=== PATIENT | female | born 1945 | race Caucasian/White ===

== ENCOUNTER → 2019-05-01 12:54 | Outpatient (CLI) | payer OTHER, MEDICARE, SELFPAY ==
[2019-05-01 13:46] LABS: Add Manual Diff / Slide Review NO; Basophils Absolute Auto 100 /uL (0-100); Basophils Percent Auto 0.9 % (0-2); Eosinophils Absolute Auto 300 /uL (0-450); Eosinophils Percent Auto 4.4 % (2-4); Hematocrit 41.7 % (36-46); Hemoglobin 14.4 g/dL (12.0-16.0); Lymphocytes Absolute Auto 1400 /uL (1100-4500); Lymphocytes Percent Auto 23.1 % (25-40); Mean Corpuscular HGB Conc 34.6 % (30-36); Mean Corpuscular Hemoglobin 31.7 PG (26-34); Mean Corpuscular Volume 91.6 fL (80-100); Monocytes Absolute Auto 400 /uL (0-900); Monocytes Percent Auto 7.1 % (3-14); Neutrophils Absolute Auto 4000 /uL (1500-7000); Neutrophils Percent Auto 64.5 % (50-75); Platelet Count 269 X10^3/uL (150-400); Red Blood Cell Count 4.55 X10^6/uL (4.0-5.2); Red Cell Distribution Width 13.4 % (11.6-14.8); White Blood Cell Count 6.3 X10^3/uL (4.5-11.0)
[2019-05-01 13:47] LABS: Alanine Aminotransferase 35 IU/L (<35); Albumin 4.7 g/dL (3.5-5.0); Albumin Globulin Ratio 1.5 (1.0-2.8); Alkaline Phosphatase 75 U/L (38-126); Aspartate Aminotransferase 37 IU/L (14-36); BUN Creatinine Ratio 18.3 (6-22); Blood Urea Nitrogen 11 mg/dL (7-17); Calcium 9.5 mg/dL (8.4-10.2); Carbon Dioxide 26 mmol/L (22-32); Chloride 93 mmol/L (98-107); Cholesterol 227 mg/dL (140-199); Estimated Glomerular Filt Rate > 60.0 mL/min (>60); Globulin 3.2 g/dL (1.7-4.1); Glucose 116 mg/dL (80-110); HDL Cholesterol 40 mg/dL (40-60); HEMOLYSIS < 15 (0-50); LDL Cholesterol Calculated 138 mg/dL (<100); Potassium 4.2 mmol/L (3.4-5.1); Sodium 132 mmol/L (137-145); Total Protein 7.9 g/dL (6.3-8.2); Triglycerides 243 mg/dL (35-150)
[2019-05-01 13:57] LABS: Hemoglobin A1C% w Est Avg Glu 5.9 % (4.0-6.0)
[2019-05-01 14:13] LABS: Vitamin D 25 Hydroxy (D3) 36.4 ng/mL (30.0-100.0)
[2019-05-01 14:26] LABS: TSH w/ Reflex to FT4 2.33 uIU/mL (0.47-4.68)
== END ==
PROVIDERS: Family Provider Physician Assistant; Visit Provider Physician Assistant
DX: R73.03 Prediabetes (principal); E55.9 Vitamin D deficiency, unspecified; I10 Essential (primary) hypertension; E03.9 Hypothyroidism, unspecified; E78.5 Hyperlipidemia, unspecified
CPT/HCPCS: 36415; 80053; 80061; 82306; 83036; 84443; 85025

== ENCOUNTER → 2020-07-11 14:59 | Outpatient (CLI) | payer MEDICARE, OTHER, SELFPAY ==
[2020-07-11 17:04] LABS: Add Manual Diff / Slide Review NO; Basophils Absolute Auto 0 /uL (0-100); Basophils Percent Auto 0.6 % (0-2); Eosinophils Absolute Auto 200 /uL (0-450); Hematocrit 38.1 % (36-46); Hemoglobin 13.2 g/dL (12.0-16.0); Lymphocytes Absolute Auto 1400 /uL (1100-4500); Lymphocytes Percent Auto 17.9 % (25-40); Mean Corpuscular HGB Conc 34.8 % (30-36); Mean Corpuscular Hemoglobin 31.9 PG (26-34); Mean Corpuscular Volume 91.7 fL (80-100); Monocytes Absolute Auto 600 /uL (0-900); Monocytes Percent Auto 8.2 % (3-14); Neutrophils Absolute Auto 5500 /uL (1500-7000); Neutrophils Percent Auto 70.3 % (50-75); Platelet Count 257 X10^3/uL (150-400); Red Blood Cell Count 4.15 X10^6/uL (4.0-5.2); Red Cell Distribution Width 12.9 % (11.6-14.8); White Blood Cell Count 7.8 X10^3/uL (4.5-11.0)
[2020-07-11 17:21] LABS: Alanine Aminotransferase 36 IU/L (<35); Albumin 4.5 g/dL (3.5-5.0); Albumin Globulin Ratio 1.4 (1.0-2.8); Alkaline Phosphatase 64 U/L (38-126); Aspartate Aminotransferase 39 IU/L (14-36); Bilirubin Total 1.6 mg/dL (0.2-1.3); Blood Urea Nitrogen 9 mg/dL (7-17); Calcium 9.6 mg/dL (8.4-10.2); Carbon Dioxide 30 mmol/L (22-32); Chloride 95 mmol/L (98-107); Cholesterol 191 mg/dL (140-199); Estimated Glomerular Filt Rate > 60.0 mL/min (>60); Globulin 3.2 g/dL (1.7-4.1); Glucose 97 mg/dL (80-110); HDL Cholesterol 42 mg/dL (40-60); HEMOLYSIS < 15 (0-50); LDL Cholesterol Calculated 103 mg/dL (<100); Potassium 4.6 mmol/L (3.4-5.1); Sodium 130 mmol/L (137-145); Total Protein 7.7 g/dL (6.3-8.2); Triglycerides 230 mg/dL (35-150)
[2020-07-11 17:50] LABS: TSH w/ Reflex to FT4 1.49 uIU/mL (0.47-4.68)
== END ==
PROVIDERS: Family Provider Physician Assistant; PCP Physician Assistant; Referring Provider Physician Assistant; Visit Provider Physician Assistant
DX: E78.5 Hyperlipidemia, unspecified (principal); I10 Essential (primary) hypertension; E03.9 Hypothyroidism, unspecified
CPT/HCPCS: 36415; 80053; 80061; 84443; 85025

== ENCOUNTER → 2020-07-27 19:35 | Outpatient (ROUT) | payer MEDICARE, OTHER, SELFPAY ==
[2020-07-27 20:09] LABS: Hemoglobin A1C% w Est Avg Glu 6.1 % (4.0-6.0)
[2020-07-27 20:10] LABS: Rheumatoid Factor < 8.6 IU/mL (<12.0)
[2020-07-27 20:16] LABS: C-Reactive Protein Quant < 0.5 mg/dL (<1.0)
[2020-07-27 20:32] LABS: Erythrocyte Sedimentation Rate 10 MM/HR (0-20)
[2020-07-30 14:24] LABS: ANA Screen, IFA Negative (.)
== END ==
PROVIDERS: Family Provider Physician Assistant; PCP Physician Assistant; Visit Provider Physician Assistant
DX: R73.03 Prediabetes (principal); M25.541 Pain in joints of right hand; M25.542 Pain in joints of left hand
CPT/HCPCS: 83036; 85651; 86038; 86140; 86430

== ENCOUNTER → 2020-09-27 08:51 | Outpatient (CLI) | payer MEDICARE, OTHER, SELFPAY ==
--- NOTE | 2020-09-27 08:55 | DI.ECHO.S_ITS ---
[place] [facility]---------+ [facility] +---------+ : : [address] : : : : [id number] : : : : Phone: [phone]+ Echocardiogram Report + + :Name: CLINTON BUENO Study Date: 09/27/2020 Height: 66 in : :[facility] ReadingLocation: Weight: 190 lb : : Gender: Female BSA: 2.0 m2 : :: 1945 Age: 75 yrs BP: 180/95 mmHg: :Reason For Study: HYPERTENSION : :Ordering Physician: BALBIR, : :GIANCARLO Performed By: Princess Clark : :Referring: GIANCARLO MCGREGOR : + + Interpretation Summary 1) Normal left ventricular thickness, size, wall motion, and systolic function (EF 60-65%). 2) Normal right ventricular size and function. 3) Diastolic parameters suggest a pseudonormalization pattern, consistent with probable elevated filling pressures. 4) No significant valvular abnormalities. 5) Hypertension present during the study (BP 180/95mmHg). 6) No prior Echo available for comparison. Procedure: A two-dimensional transthoracic echocardiogram with color flow and Doppler was performed. The study quality was technically adequate. There is no prior echocardiogram noted for this patient. The patient was in sinus bradycardia with heart rates between 56-67 bpm during the exam. Left Ventricle: The left ventricle is normal in size. Left ventricular wall thickness is at the upper limits of normal. The ejection fraction is estimated to be 60-65%. Diastolic parameters suggest a pseudonormalization pattern, consistent with probable elevated filling pressures. Right Ventricle: The right ventricle is normal in size and function. Atria: The left atrium is severely dilated. Right atrial size is normal. There is no Doppler evidence for an interatrial shunt. Mitral Valve: The mitral valve is normal in structure and function. There is mild mitral regurgitation. Aortic Valve: The aortic valve is trileaflet. The aortic valve opens well. There is no aortic valve stenosis. No aortic regurgitation is present. Tricuspid Valve: The tricuspid valve is normal in structure and function. There is mild tricuspid regurgitation. Pulmonary artery pressures cannot be estimated because of the lack of a measurable TR jet velocity but the IVC suggests a CVP of around 3 mmHg. Pulmonic Valve: The pulmonic valve is not well seen, but is grossly normal. There is no pulmonic valvular regurgitation. Great Vessels: The aortic root is normal size. The dimensions of the ascending aorta are normal. The IVC is of normal diameter and collapses greater than 50% with a sniff. This suggests a low right atrial pressure of 3 mm Hg. Pericardium/ Pleura There is no pericardial effusion. There is no pleural effusion. MMode/2D Measurements & Calculations LVIDd: 5.1 cm LVOT diam: 2.0 cm LVIDs: 3.2 cm Ao root diam: 2.6 cm FS: 37.5 % asc Aorta Diam: 2.8 cm IVSd: 0.89 cm Ao Arch Diam (Prox Trans): 2.5 cm LVPWd: 1.1 cm LV garnica. diameter/BSA (cm/m^2): 2.6 LV sys. diameter/BSA (cm/m^2): 1.6 LA A2 area: 27.1 cm2 RA long axis: 4.1 cm LA A4 area: 25.6 cm2 RA area: 15.6 cm2 LA length (vol): 5.9 cm RA vol: 50.9 ml LA vol: 100.5 ml RA : 26.0 ml/m2 LA vol index: 51.4 ml/m2 IVC diam: 1.1 cm RVD1 (basal): 3.1 cm TAPSE: 1.9 cm Doppler Measurements & Calculations Ao V2 max: 164.7 cm/sec LVOT Max Derek: 112.0 cm/sec Ao V2 mean: 124.0 cm/sec LV V1 max P.0 mmHg Ao max P.8 mmHg LV V1 VTI: 25.3 cm Ao mean P.8 mmHg JORDAN(I,D): 1.9 cm2 Ao V2 VTI: 40.1 cm JORDAN(V,D): 2.0 cm2 sev ratio: 0.63 JORDAN indexed to BSA (cm^2/m^2): 0.97 MV E max derek: 96.7 cm/sec PA V2 max: 86.4 cm/sec Med Peak E' Derek: 8.3 cm/sec PA V2 mean: 62.0 cm/sec E/E' med: 11.7 PA mean P.7 mmHg Lat Peak E' Derek: 5.6 cm/sec PA pr(Accel): 32.8 mmHg E/E' lat: 17.4 E/e' average: 14.5 MV dec time: 0.21 sec SV(LVOT): 76.2 ml Reading Physician:11:28 AM
== END ==
PROVIDERS: Family Provider Physician Assistant; PCP Physician Assistant; Referring Provider Physician Assistant; Visit Provider Physician Assistant
DX: I10 Essential (primary) hypertension (principal); R01.1 Cardiac murmur, unspecified
CPT/HCPCS: 93306

== ENCOUNTER → 2020-11-28 13:09 | Outpatient (CLI) | payer MEDICARE, OTHER, SELFPAY ==
[2020-11-28 14:27] LABS: Add Manual Diff / Slide Review NO; Basophils Absolute Auto 100 /uL (0-100); Basophils Percent Auto 0.8 % (0-2); Eosinophils Absolute Auto 200 /uL (0-450); Eosinophils Percent Auto 3.3 % (2-4); Hematocrit 40.2 % (36-46); Hemoglobin 13.6 g/dL (12.0-16.0); Lymphocytes Absolute Auto 1300 /uL (1100-4500); Lymphocytes Percent Auto 20.1 % (25-40); Mean Corpuscular HGB Conc 33.8 % (30-36); Mean Corpuscular Hemoglobin 31.5 PG (26-34); Mean Corpuscular Volume 93.3 fL (80-100); Monocytes Absolute Auto 700 /uL (0-900); Monocytes Percent Auto 10.3 % (3-14); Neutrophils Absolute Auto 4300 /uL (1500-7000); Neutrophils Percent Auto 65.5 % (50-75); Platelet Count 224 X10^3/uL (150-400); Red Blood Cell Count 4.31 X10^6/uL (4.0-5.2); Red Cell Distribution Width 13.8 % (11.6-14.8); White Blood Cell Count 6.6 X10^3/uL (4.5-11.0)
[2020-11-28 14:42] LABS: Hemoglobin A1C% w Est Avg Glu 5.9 % (4.0-6.0)
[2020-11-28 15:04] LABS: Alanine Aminotransferase 24 IU/L (<35); Albumin 4.3 g/dL (3.5-5.0); Albumin Globulin Ratio 1.3 (1.0-2.8); Alkaline Phosphatase 72 U/L (38-126); Aspartate Aminotransferase 32 IU/L (14-36); BUN Creatinine Ratio 17.3 (6-22); Bilirubin Total 1.8 mg/dL (0.2-1.3); Blood Urea Nitrogen 9 mg/dL (7-17); Calcium 9.6 mg/dL (8.4-10.2); Carbon Dioxide 27 mmol/L (22-32); Chloride 99 mmol/L (98-107); Cholesterol 201 mg/dL (140-199); Estimated Glomerular Filt Rate > 60.0 mL/min (>60); Globulin 3.4 g/dL (1.7-4.1); Glucose 107 mg/dL (80-110); HDL Cholesterol 41 mg/dL (40-60); HEMOLYSIS < 15 (0-50); LDL Cholesterol Calculated 120 mg/dL (<100); Potassium 4.4 mmol/L (3.4-5.1); Sodium 135 mmol/L (137-145); Total Protein 7.7 g/dL (6.3-8.2); Triglycerides 198 mg/dL (35-150)
[2020-11-28 15:31] LABS: TSH w/ Reflex to FT4 1.96 uIU/mL (0.47-4.68)
== END ==
PROVIDERS: Family Provider Physician Assistant; PCP Physician Assistant; Referring Provider Physician Assistant; Visit Provider Physician Assistant
DX: I10 Essential (primary) hypertension (principal); R73.03 Prediabetes; E03.9 Hypothyroidism, unspecified; E78.5 Hyperlipidemia, unspecified
CPT/HCPCS: 36415; 80053; 80061; 83036; 84443; 85025

== ENCOUNTER 2022-06-12 14:15 | Outpatient (RCR) | payer MEDICARE, OTHER, SELFPAY | END 2022-06-12 16:15 | LOC: CAR 14:15 | PROVIDERS: Family Provider Physician Assistant; PCP Physician Assistant; Referring Provider Surgery; Visit Provider Surgery | DX: I25.719 Atherosclerosis of autologous vein coronary artery bypass graft(s) with unspecified angina pectoris (principal) | CPT/HCPCS: 93798 ==

== ENCOUNTER 2023-01-28 13:08 | Emergency (ER) | payer MEDICARE, OTHER, SELFPAY ==
[2023-01-28] VITALS (11 sets, daily range): BP systolic 126–200; BP diastolic 60–94; PULSE 63–71; RESP 13–30; TEMP 37; O2SAT 97–100; BMI 28.2
--- NOTE | 2023-01-28 13:18 | DI.RAD.S_ITS ---
PROCEDURE: XR CHEST 1V INDICATIONS: chest pain TECHNIQUE: One view of the chest was acquired. COMPARISON: None. FINDINGS: Surgical changes and devices: Prior CABG procedure. Lungs and pleura: Lungs are clear. No pleural effusions or pneumothorax. Mediastinum: Mediastinal contours appear normal. Heart size is normal. Bones and chest wall: No suspicious bony lesions. Overlying soft tissues appear unremarkable. IMPRESSION: No acute cardiopulmonary disease process. Dictated by: Savi Ramachandran MD, PhD on 01/28/2023 at 14:36 Approved by: Savi Ramachandran MD, PhD on 01/28/2023 at 14:36
[2023-01-28 13:49] LABS: Add Manual Diff / Slide Review NO; Basophils Absolute Auto 0 /uL (0-100); Basophils Percent Auto 0.8 % (0-2); Eosinophils Absolute Auto 100 /uL (0-450); Eosinophils Percent Auto 2.1 % (2-4); Hematocrit 36.9 % (36-46); Hemoglobin 12.7 g/dL (12.0-16.0); Lymphocytes Absolute Auto 900 /uL (1100-4500); Lymphocytes Percent Auto 15.4 % (25-40); Mean Corpuscular HGB Conc 34.5 % (30-36); Mean Corpuscular Hemoglobin 31.3 PG (26-34); Mean Corpuscular Volume 90.8 fL (80-100); Monocytes Absolute Auto 600 /uL (0-900); Monocytes Percent Auto 10.2 % (3-14); Neutrophils Absolute Auto 4400 /uL (1500-7000); Neutrophils Percent Auto 71.5 % (50-75); Platelet Count 270 X10^3/uL (150-400); Red Blood Cell Count 4.06 X10^6/uL (4.0-5.2); Red Cell Distribution Width 14.4 % (11.6-14.8); White Blood Cell Count 6.1 X10^3/uL (4.5-11.0)
[2023-01-28 13:51] LABS: PTT Partial Thromboplastin Tim 19 SECONDS (26-36)
[2023-01-28 13:57] LABS: Alanine Aminotransferase 30 IU/L (<35); Albumin 4.5 g/dL (3.5-5.0); Albumin Globulin Ratio 1.4 (1.0-2.8); Alkaline Phosphatase 79 U/L (38-126); Aspartate Aminotransferase 37 IU/L (14-36); Bilirubin Total 1.6 mg/dL (0.2-1.3); Blood Urea Nitrogen 8 mg/dL (7-17); Calcium 9.3 mg/dL (8.4-10.2); Carbon Dioxide 24 mmol/L (22-32); Chloride 100 mmol/L (98-107); Creatine Kinase 73 U/L (30-135); Estimated Glomerular Filt Rate > 60 mL/min (>60); Globulin 3.3 g/dL (1.7-4.1); Glucose 111 mg/dL (80-110); HEMOLYSIS 20 (0-50); Lipase 98 U/L (23-300); Potassium 3.8 mmol/L (3.4-5.1); Sodium 134 mmol/L (137-145); Total Protein 7.8 g/dL (6.3-8.2)
[2023-01-28 14:07] LABS: Troponin I < 0.012 ng/mL (0.01-0.034)
--- NOTE | 2023-01-28 17:47 | PC.NURSE ---
Pt reports she went to her doctor today and stated she had an irregular EKG and needed to be evaluated at the ER. Pt states she had bypass surgery October 2021. She had recent root canal and other dental work that created an infection. States she has not been on antibiotics and might have a UTI. States it tingles when she urinates. Says PCP tested for yeast and UTI, today.
--- NOTE | 2023-01-28 18:09 | ED.DIZZY ---
HPI - Dizziness General Chief Complaint: Dizziness Stated Complaint: irregular EKG, sent by PCP Time Seen by Provider: 01/28/23 18:09 Source: patient Mode of arrival: Ambulatory History of Present Illness HPI Narrative: patient is a 77-year-old female history of coronary artery disease with CABG, hypertension, hypothyroid presenting today with generally not feeling well. She is had some ongoing nausea for about 6-8 weeks. She was seen evaluated by her relay tester helper 5 days ago he decreased some of her blood pressure medication. She apparently has been monitoring her blood pressure at home. she says it is elevated in the 160s before she takes her meds and then it comes down. She feels a disoriented but no numbness tingling or weakness. She denies any significant shortness of breath rest but while walking up a slight incline she does have some shortness of breath she denies any orthopnea. She denies any chest pain or palpitations. She was taken off her furosemide she was started on spironolactone I think eventually taken off that as well and now she is taken hydrochlorothiazide 1 tablet once a week. Carvedilol, amlodipine happened cut in half. she is noted to be hypertensive in the ED. she denies any significant abdominal pain fever. She reports that she has some urinary frequency she was just treated for yeast infection. She denies any flank pain or fever. she also reporting some burning and her esophagus she reports that she is also taken off her pantoprazole. Related Data Allergies Allergy/AdvReac Type Severity Reaction Status Date / Time Penicillins Allergy Unknown Unverified 10/01/17 11:58 Sulfa (Sulfonamide Allergy Unknown Unverified 10/01/17 11:58 Antibiotics) Review of Systems Review of Systems ROS Unobtainable: All systems reviewed & are unremarkable except as noted in HPI and below Patient History Social History Smoking Status: Never smoker Smoking Status: Never smoker alcohol intake frequency: holidays/special occasions only Substance Use Type: does not use Exam Initial Vital Signs Initial Vital Signs: Vital Signs Temperature 98.6 F 01/28/23 13:13 Pulse Rate 68 01/28/23 13:13 Respiratory Rate 18 01/28/23 13:13 Blood Pressure 200/90 H 01/28/23 13:13 Pulse Oximetry 100 01/28/23 13:13 Oxygen Delivery Method Room Air 01/28/23 13:13 GENERAL: Alert very pleasant 77-year-old female HEENT: Head atraumatic,EOMI, pupils reactive, face symmetric, [moist] mucous membranes CARDIOVASCULAR: Regular rate and rhythm without murmurs, rubs or gallops. RESPIRATORY: Breath sounds equal bilaterally, no wheezes rales or rhonchi. ABDOMEN: Soft, nontender. Normoactive bowel sounds all 4 quadrants. No guarding or rebound. : No CVA tenderness EXTREMITIES: Normal range of motion, no clubbing or edema. Neurovascularly intact NEUROLOGICAL: Alert and oriented x4.Normal gait and speech. Cranial nerves II through XII grossly intact. SKIN: Warm, dry, no laceration, no petechiae, no rashes or lesions. Course Orders Ordered: ED Orders 01/28/23 18:00 Urinalysis and Microscopic Stat 01/28/23 18:26 EKG-12 Lead Stat 01/28/23 18:34 BNP [NT-proBNP (BNP-Adult 18+)] Stat Trop I [Troponin I] Stat Discontinued Medications Aspirin (Aspirin 81 Mg Chew Tab) 324 mg PO NOW ONE Stop: 01/28/23 13:18 Last Admin: 01/28/23 13:54 Dose: Not Given Documented By: YESSI Vital Signs Vital signs: Vital Signs - 8 hr 01/28/23 18:45 01/28/23 18:45 01/28/23 19:00 Pulse Rate 64 Respiratory Rate 13 Blood Pressure 138/65 126/60 01/28/23 19:00 Pulse Rate 63 Respiratory Rate 13 Blood Pressure MDM - Dizziness Lab Data 01/28/23 13:30 01/28/23 13:30 Labs: Lab Results 01/28/23 01/28/23 01/28/23 Range/Units 13:30 13:30 13:30 WBC 6.1 (4.5-11.0) X10^3/uL RBC 4.06 (4.0-5.2) X10^6/uL Hgb 12.7 (12.0-16.0) g/dL Hct 36.9 (36-46) % MCV 90.8 (80-100) fL MCH 31.3 (26-34) PG MCHC 34.5 (30-36) % RDW 14.4 (11.6-14.8) % Plt Count 270 (150-400) X10^3/uL Neut % (Auto) 71.5 (50-75) % Lymph % (Auto) 15.4 L (25-40) % [place] % (Auto) 10.2 (3-14) % Eos % (Auto) 2.1 (2-4) % Baso % (Auto) 0.8 (0-2) % Neut # (Auto) 4400 (6639-8553) /uL Lymph # (Auto) 900 L (3033-0188) /uL [place] # (Auto) 600 (0-900) /uL Eos # (Auto) 100 (0-450) /uL Baso # (Auto) 0 (0-100) /uL PT 11.0 (10.1-12.7) SECONDS INR 1.0 (0.9-1.3) APTT 19 L (26-36) SECONDS Sodium (137-145) mmol/L Potassium (3.4-5.1) mmol/L Chloride (98-107) mmol/L Carbon Dioxide (22-32) mmol/L BUN (7-17) mg/dL Creatinine (0.52-1.04) mg/dL Estimated GFR (>60) mL/min BUN/Creatinine Ratio (6-22) Glucose (80-110) mg/dL Calcium (8.4-10.2) mg/dL Magnesium (1.6-2.3) mg/dL Total Bilirubin (0.2-1.3) mg/dL AST (14-36) IU/L ALT (<35) IU/L Alkaline Phosphatase (38-126) U/L Total Creatine Kinase (30-135) U/L Troponin I (0.01-0.034) ng/mL NT-Pro-B Natriuret Pep (<450) pg/mL Total Protein (6.3-8.2) g/dL Albumin (3.5-5.0) g/dL Globulin (1.7-4.1) g/dL Albumin/Globulin Ratio (1.0-2.8) Lipase 98 (23-300) U/L Urine Color Urine Appearance Urine pH (4.5-8.0) Ur Specific [place] (1.000-1.035) Urine Protein (Negative) Urine Glucose (UA) (Negative) g/dL Urine Ketones (NEGATIVE) Urine Occult Blood (Negative) Urine Nitrate (Negative) Urine Bilirubin (NEGATIVE) Urine Urobilinogen (0.2) E.U./dL Ur Leukocyte Esterase (NEGATIVE) Urine RBC (0-5/HPF) Urine WBC (0-5/HPF) Ur Squamous Epith Cells (0-5/HPF) Urine Bacteria (None) Ur Culture Indicated? 01/28/23 01/28/23 01/28/23 Range/Units 13:30 18:00 18:34 WBC (4.5-11.0) X10^3/uL RBC (4.0-5.2) X10^6/uL Hgb (12.0-16.0) g/dL Hct (36-46) % MCV (80-100) fL MCH (26-34) PG MCHC (30-36) % RDW (11.6-14.8) % Plt Count (150-400) X10^3/uL Neut % (Auto) (50-75) % Lymph % (Auto) (25-40) % [place] % (Auto) (3-14) % Eos % (Auto) (2-4) % Baso % (Auto) (0-2) % Neut # (Auto) (0523-1715) /uL Lymph # (Auto) (1875-6404) /uL [place] # (Auto) (0-900) /uL Eos # (Auto) (0-450) /uL Baso # (Auto) (0-100) /uL PT (10.1-12.7) SECONDS INR (0.9-1.3) APTT (26-36) SECONDS Sodium 134 L (137-145) mmol/L Potassium 3.8 (3.4-5.1) mmol/L Chloride 100 (98-107) mmol/L Carbon Dioxide 24 (22-32) mmol/L BUN 8 (7-17) mg/dL Creatinine 0.50 L (0.52-1.04) mg/dL Estimated GFR > 60 (>60) mL/min BUN/Creatinine Ratio 16.0 (6-22) Glucose 111 H (80-110) mg/dL Calcium 9.3 (8.4-10.2) mg/dL Magnesium 2.0 (1.6-2.3) mg/dL Total Bilirubin 1.6 H (0.2-1.3) mg/dL AST 37 H (14-36) IU/L ALT 30 (<35) IU/L Alkaline Phosphatase 79 (38-126) U/L Total Creatine Kinase 73 (30-135) U/L Troponin I < 0.012 < 0.012 (0.01-0.034) ng/mL NT-Pro-B Natriuret Pep 394 (<450) pg/mL Total Protein 7.8 (6.3-8.2) g/dL Albumin 4.5 (3.5-5.0) g/dL Globulin 3.3 (1.7-4.1) g/dL Albumin/Globulin Ratio 1.4 (1.0-2.8) Lipase (23-300) U/L Urine Color Yellow Urine Appearance Clear Urine pH 7.5 (4.5-8.0) Ur Specific [place] 1.010 (1.000-1.035) Urine Protein Negative (Negative) Urine Glucose (UA) Negative (Negative) g/dL Urine Ketones Negative (NEGATIVE) Urine Occult Blood Negative (Negative) Urine Nitrate Negative (Negative) Urine Bilirubin Negative (NEGATIVE) Urine Urobilinogen 0.2 (0.2) E.U./dL Ur Leukocyte Esterase Negative (NEGATIVE) Urine RBC None seen (0-5/HPF) Urine WBC None seen (0-5/HPF) Ur Squamous Epith Cells 0-1 /hpf (0-5/HPF) Urine Bacteria None seen (None) Ur Culture Indicated? Cult not indicated Urine Dip Bedside Urine Glucose Negative Bedside Urine Bilirubin - Negative Bedside Urine Ketone - Negative Urine Specific [place] 1.010 Bedside Urine Occult Blood - Negative Bedside Urine pH 6.0 Bedside Urine Protein - Negative Bedside Urine Urobilinogen - Negative Bedside Urine Nitrite - Negative Bedside Urine Leukocytes - Negative Esterase Imaging Data Chest x-ray: Radiologist's Impression: PROCEDURE:? XR CHEST 1V ? INDICATIONS:? chest pain ? TECHNIQUE:? One view of the chest was acquired.? ? COMPARISON:? None. ? FINDINGS:? ? Surgical changes and devices:? Prior CABG procedure. ? Lungs and pleura:? Lungs are clear.? No pleural effusions or pneumothorax.? ? Mediastinum:? Mediastinal contours appear normal.? Heart size is normal.? ? Bones and chest wall:? No suspicious bony lesions.? Overlying soft tissues appear unremarkable.? ? IMPRESSION:? No acute cardiopulmonary disease process. ? ? Dictated by: Savi Ramachandran MD, PhD on 01/28/2023 at 14:36 ECG Data Interpretation: Sinus rhythm rate 65 KS interval 180 QRS 84 QTC 426 T-wave inversions noted V1 V2 V3 V[address] elevation or Q-wave MDM Narrative Medical decision making narrative: Patient 77-year-old female history coronary artery disease, hypertension apparently sent by her PCP for abnormal EKG. She did have a CABG she has T-wave inversions but no priors to compare. She is not actively having any chest pain. She is 2- troponins. Blood pressure initially was quite elevated 200/90, but it has come down to 126/60 without any sort of intervention. Her blood pressure medications have been changed by her relay tester helper difficult at this time to tell if it is inappropriate change or not. Recommend that she continue to manage and follow her blood pressure at home. There are certainly no evidence of end-organ damage. Urinalysis is also negative. She is no focal deficit to suggest any stroke. She is awake alert oriented having some vague kind of complaints which have been ongoing and progressively worse. This time I see no need for any further workup in the ED but do recommend close outpatient follow-up Discharge Plan Departure Patient Disposition: Home Clinical Impression: Hypertension Instructions: High Blood Pressure Activity Restrictions/Additional Instructions: *You have been diagnosed with hypertension *What to do: at this time please continue to monitor blood pressure 1 to 2 times a day and record it. Please follow-up with primary care provider in regards to blood pressure management. *Continue to take medications as directed *Follow up with your primary care provider in 2-3 days or call [phone] *Return to ER if you should have Increasing headache shortness of breath chest pain persistently elevated blood pressure greater than 200/105 for longer than 2 hours [or] any new, worsening or concerning symptoms Referrals: Junie Queen ARNP [Primary Care Provider] - Darion Zuñiga MD [Physician] - Stand Alone Forms: Patient Portal/API
[2023-01-28 18:38] LABS: Appearance Urine UA CLEAR; Bilirubin Urine UA NEGATIVE (NEGATIVE); Color Urine UA YELLOW; Glucose Urine UA NEGATIVE (Negative); Ketones Urine UA NEGATIVE (NEGATIVE); Leukocyte Esterase Urine UA NEGATIVE (NEGATIVE); Nitrite Urine UA NEGATIVE (Negative); Occult Blood Urine UA NEGATIVE (Negative); Protein Urine UA NEGATIVE (Negative); Urobilinogen Urine UA 0.2 E.U./dL (0.2)
[2023-01-28 19:04] LABS: pH Urine UA 7.5 (4.5-8.0)
[2023-01-28 19:05] LABS: Bacteria Urine None Seen; RBC Urine None Seen (0-5/HPF); Squamous Epithelial Cell Urine 0-1 /HPF (0-5/HPF); WBC Urine None Seen (0-5/HPF)
[2023-01-28 19:06] LABS: Culture Indicated Urine Cult Not Indicated
[2023-01-28 19:32] LABS: NT-proBNP (BNP-Adult 18+) 394 pg/mL (<450); Troponin I < 0.012 ng/mL (0.01-0.034)
== END 2023-01-28 20:43 | disposition home or self-care (01) ==
PROVIDERS: Emergency Medicine; Emergency Provider Emergency Medicine; Family Provider Physician Assistant; PCP Registered Nurse
DX: I10 Essential (primary) hypertension (principal)
CPT/HCPCS: 36415; 71045; 80053; 81001; 81003; 82550; 83690; 83735; 83880; 84484; 85025; 85610; 85730; 93005; 93010; 99283; 99284

== ENCOUNTER → 2023-12-29 12:06 | Outpatient (CLI) | payer MEDICARE, OTHER, SELFPAY ==
--- NOTE | 2023-12-29 | DI.RAD.S_ITS ---
PROCEDURE: XR KNEE RT 1TO2V INDICATIONS: RT KNEE BUCKLING TECHNIQUE: 2 views of the knee were acquired. COMPARISON: None. FINDINGS: Bones: No fractures or dislocations. No suspicious bony lesions. Moderate to severe tricompartmental arthritic change most severe medially. Prominent periarticular osteophytes are present. No erosions. Soft tissues: Mild joint effusion. No suspicious soft tissue calcifications. IMPRESSION: Tricompartmental arthritic change most severe medially. Dictated by: Naida Kelley M.D. on 12/29/2023 at 16:07 Approved by: Naida Kelley M.D. on 12/29/2023 at 16:07
--- NOTE | 2023-12-29 | DI.RAD.S_ITS ---
PROCEDURE: XR KNEE LT 1TO2V INDICATIONS: RT KNEE BUCKLING TECHNIQUE: 2 views of the knee were acquired. COMPARISON: None. FINDINGS: Bones: No fractures or dislocations. No suspicious bony lesions. Moderate to severe medial and moderate lateral and patellofemoral compartment narrowing. Periarticular osteophytes are present. No erosions. Soft tissues: Mild joint effusion. No suspicious soft tissue calcifications. IMPRESSION: Tricompartmental arthritic change most severe medially. Dictated by: Naida Kelley M.D. on 12/29/2023 at 16:02 Approved by: Naida Kelley M.D. on 12/29/2023 at 16:07
== END ==
PROVIDERS: Family Provider Physician Assistant; PCP Registered Nurse; Referring Provider Registered Nurse; Visit Provider Registered Nurse
DX: M25.361 Other instability, right knee (principal); M25.462 Effusion, left knee; M25.461 Effusion, right knee
CPT/HCPCS: 73560

== ENCOUNTER → 2024-12-16 16:33 | Outpatient (CLI) | payer MEDICARE, OTHER, SELFPAY ==
--- NOTE | 2024-12-16 16:35 | DI.RAD.S_ITS ---
PROCEDURE: XR CHEST 2V INDICATIONS: FATIGUE, ABNORMAL WEIGHT LOSS TECHNIQUE: 2 views of the chest were acquired. COMPARISON: [facility], CR, XR CHEST 1V, 01/28/2023, 14:01. FINDINGS: New focal consolidation right middle lobe partially obscures the right heart border suspicious for pneumonia. New [id number] bilateral perihilar and lower lobe peribronchial thickening and patchy opacities, bronchopneumonia, pneumonia, viral infection, or other process should be considered. Median sternotomy again noted. No pneumothorax, no pleural effusion. Cardiopericardial silhouette and pulmonary vasculature within normal limits. IMPRESSION: New consolidation right middle lobe suspicious for pneumonia. Follow-up is needed. New [id number] bilateral peribronchial thickening and patchy opacities as discussed above. If symptoms persist or worsen, CT chest could be performed. Dictated by: Wero Junior M.D. on 12/17/2024 at 11:06 Approved by: Wero Junior M.D. on 12/17/2024 at 11:13
== END ==
PROVIDERS: Family Provider Physician Assistant; PCP Registered Nurse; Referring Provider Registered Nurse; Visit Provider Registered Nurse
DX: I50.32 Chronic diastolic (congestive) heart failure (principal); R53.83 Other fatigue; R63.4 Abnormal weight loss; R06.02 Shortness of breath; R05.9 Cough, unspecified
CPT/HCPCS: 0241U; 71046

== ENCOUNTER → 2024-12-16 16:57 | Outpatient (ROUT) | payer MEDICARE, OTHER, SELFPAY ==
[2024-12-16 17:57] LABS: Influenza A - CEPHEID Flu A NEGATIVE (NEGATIVE); Influenza B - CEPHEID Flu B NEGATIVE (NEGATIVE); Respiratory Syncytial Virus Negative (Negative)
[2024-12-16 18:06] LABS: COVID-19 CEPHEID 4-PLEX PCR Negative (Negative)
== END ==
PROVIDERS: Family Provider Physician Assistant; PCP Registered Nurse; Visit Provider Registered Nurse
DX: R06.02 Shortness of breath (principal); R05.9 Cough, unspecified
CPT/HCPCS: 0241U

== ENCOUNTER 2024-12-17 13:47 | Emergency (ER) | payer MEDICARE, OTHER, SELFPAY ==
[2024-12-17] VITALS (7 sets, daily range): BP systolic 117–153; BP diastolic 57–77; PULSE 62–73; RESP 16–19; TEMP 37.6; O2SAT 94–97; BMI 27.7
--- NOTE | 2024-12-17 14:38 | EKG_ITS ---
[address] [address] Test Date: 2024-12-17 Pat Name: Carol Yates Department: Room: Gender: Female Loan Servicing Representative: MARIYA : 1945 Requested By: Order Number: [id number] Reading MD: Carmine Perez MD Measurements Intervals [place] Rate: 69 P: 46 MS: 168 QRS: 15 QRSD: 94 T: 30 QT: 394 QTc: 422 Interpretive Statements Normal sinus rhythm Incomplete right bundle branch block ST & T wave abnormality, consider anterior ischemia Electronically Signed On 12-17-2024 15:49:39 PDT by Carmine Perez MD
--- NOTE | 2024-12-17 15:31 | ED.GENADULT ---
HPI - General Adult General Chief complaint: Shortness of Breath/Dyspnea Stated complaint: Sent from PCP possible Pneumonia Time Seen by Provider: 12/17/24 14:27 Source: patient Mode of arrival: Ambulatory History of Present Illness HPI narrative: 79-year-old woman with a history of coronary artery disease post two-vessel CABG shortness of breath increasing for the last week. She saw her primary care physician, Dr. Zuñiga yesterday blood work was done which shows normal white count, sodium low at 125, normal renal function and cardiac labs were not included. Chest x-ray was done with concerns for new focal consolidation in the right middle lobe suspicious for pneumonia, and [id number] peribronchial thickening and patchy opacities. She continues to complain of pleuritic pain with coughing, has a slightly hoarse voice, she is still short of breath and continues to complain of increasing fatigue over the most recent week. Related Data Previous Rx's ?Medication ?Instructions ?Recorded cephalexin 500 mg capsule 500 mg PO TID #30 caps 12/17/24 doxycycline hyclate 100 mg capsule 100 mg PO BID #20 caps 12/17/24 Allergies Allergy/AdvReac Type Severity Reaction Status Date / Time Penicillins Allergy Unknown Unverified 12/17/24 14:20 Sulfa (Sulfonamide Allergy Unknown Unverified 12/17/24 14:20 Antibiotics) Review of Systems Review of Systems Narrative: Pertinent positive and negative findings as per HPI Patient History Medical History (Updated 12/17/24 @ 19:[address] MD) Coronary artery abnormality Social History Smoking Status: Never smoker Smoking Status: Never smoker alcohol intake frequency: holidays/special occasions only Exam Initial Vital Signs Initial Vital Signs: Vital Signs Temperature 99.6 F 12/17/24 14:19 Pulse Rate 73 12/17/24 14:19 Respiratory Rate 17 12/17/24 14:19 Blood Pressure 134/63 12/17/24 14:19 Pulse Oximetry 94 12/17/24 14:19 Oxygen Delivery Method Room Air 12/17/24 14:19 General: Healthy appearing, in no acute distress. Able to give a complete and coherent history. Slightly hoarse, Well-nourished well-developed HEENT: Moist mucous membranes, normal sclera with reactive pupils, Respiratory: Lungs are clear to auscultation, no wheezing no rales no rhonchi. Full and symmetrical air movement Cardiac: Regular rate and rhythm no murmurs no bruits Abdomen: Soft, nontender, no rebound or guarding, no flank pain Skin: Warm and dry, no rashes Neurologic: Grossly neurologically intact with no obvious asymmetries or abnormalities Extremities: No trauma, well perfused Psych: Cooperative, appropriate insight and affect Course Orders Ordered: ED Orders 12/17/24 14:45 CBC Auto Diff [Complete Blood Count AUTO DIFF] Stat CMP [Comprehensive Metabolic Panel] Stat Trop I [Troponin I] Stat 12/17/24 15:10 EKG-12 Lead Stat 12/17/24 15:35 CT chest w con Stat Vital Signs Vital signs: Vital Signs - 8 hr 12/17/24 14:19 12/17/24 17:11 Temperature 99.6 F Pulse Rate 73 62 Respiratory Rate 17 16 Blood Pressure 134/63 128/61 Pulse Oximetry 94 94 Oxygen Delivery Method Room Air Room Air Medical Decision Making Lab Data 12/17/24 14:45 12/17/24 14:45 Labs: Lab Results 12/17/24 Range/Units 14:45 WBC 9.7 (4.5-11.0) X10^3/uL RBC 3.97 L (4.0-5.2) X10^6/uL Hgb 12.4 (12.0-16.0) g/dL Hct 35.3 L (36-46) % MCV 89.1 (80-100) fL MCH 31.3 (26-34) PG MCHC 35.1 (30-36) % RDW 13.6 (11.6-14.8) % Plt Count 241 (150-400) X10^3/uL Neut % (Auto) 85.2 H (50-75) % Lymph % (Auto) 5.1 L (25-40) % [place] % (Auto) 9.4 (3-14) % Eos % (Auto) 0.1 L (2-4) % Baso % (Auto) 0.2 (0-2) % Neut # (Auto) 8300 H (1273-7057) /uL Lymph # (Auto) 500 L (8546-9308) /uL [place] # (Auto) 900 (0-900) /uL Eos # (Auto) 0 (0-450) /uL Baso # (Auto) 0 (0-100) /uL Sodium 128 L (137-145) mmol/L Potassium 3.7 (3.4-5.1) mmol/L Chloride 95 L (98-107) mmol/L Carbon Dioxide 22 (22-32) mmol/L BUN 15 (7-17) mg/dL Creatinine 0.77 (0.52-1.04) mg/dL Estimated GFR > 60 (>60) mL/min BUN/Creatinine Ratio 19.5 (6-22) Glucose 104 H (70-99) mg/dL Calcium 9.1 (8.4-10.2) mg/dL Total Bilirubin 1.0 (0.2-1.3) mg/dL AST 78 H (14-36) IU/L ALT 74 H (<35) IU/L Alkaline Phosphatase 51 (38-126) U/L Troponin I < 0.012 (0.01-0.034) ng/mL Total Protein 7.7 (6.3-8.2) g/dL Albumin 4.3 (3.5-5.0) g/dL Globulin 3.4 (1.7-4.1) g/dL Albumin/Globulin Ratio 1.3 (1.0-2.8) Imaging Data CT scan - chest: Radiologist's Impression: P of MIRANDAEDURE: CT CHEST W CON INDICATIONS: middle lobe abnormality TECHNIQUE: After the administration of intravenous contrast, 5 mm thick sections acquired from the pulmonary apices to the posterior costophrenic angles. 1 mm axial lung, 5 mm thick coronal and sagittal reformats and 7 mm axial MIP were acquired. For radiation dose reduction, the following was used: automated exposure control, adjustment of mA and/or kV according to patient size. COMPARISON: [facility], CR, XR CHEST 2V, 12/16/2024, 16:35. FINDINGS: Image quality: Diagnostic. Lower Neck: No enlarged lymph nodes. Thyroid: No thyroid nodules which require sonographic follow up, per consensus guidelines. Axillae: No enlarged lymph nodes. Chest Wall: Midline sternotomy. Bones: Unremarkable. Lungs and Pleura: No pneumothorax or pleural effusions. There is dense consolidation and associated atelectasis present involving the lateral segment of the right middle lobe with extensive air bronchograms present. There is also patchy atelectasis in the basilar portion of the right lower lobe. Heart: Heart size is normal. Severe coronary artery calcifications. No pericardial effusion. Thoracic Vessels: The aorta and pulmonary arteries demonstrate normal size. Mediastinum and Maki: No enlarged lymph nodes. Multiple surgical clips are present in the anterior mediastinum. Esophagus: No wall thickening. Small hiatal hernia hiatal hernia. Upper Abdomen: Visualized upper abdomen solid organs and bowel loops appear normal. IMPRESSION: 1. Dense consolidation with associated atelectasis involving the lateral segment of the right middle lobe. 2. Patchy basilar portion right lower lobe atelectasis. 3. Severe coronary artery calcifications. Dictated by: Anthony Garcia M.D. on 12/17/2024 at 16:37 MDM Narrative Medical decision making narrative: CC: Cough for a week, lab and chest x-ray done yesterday by her primary care physician instructed to come to the ER for further evaluation Data collected from: patient Medical records reviewed: Blood work yesterday from clinic is sent by fax for review. Chest x-ray done yesterday is also reviewed Differential considered: Pneumonia, with the right middle lobe primary pneumonia possibility of obstructing bronchial cancer, tuberculosis, congestive heart failure Exam documented above, pertinent findings include: Side from a hoarse voice, mild minimally productive cough patient appears quite well. Despite having seen in the chest x-ray prior to listening to the patient, I still do not hear any rhonchi or wheezing in her lungs Lab Test results independently reviewed as above. Pertinent findings: CBC shows no leukocytosis, white count at 9.7 however she does have a left shift at 85.2. Chemistries show mild hyponatremia at 1:28 a.m.. Appropriate renal function, minimal elevation to both AST and ALT at 78 and 74 respectively Troponin is undetectable Independently reviewed EKG: Sinus rhythm at a rate of 69 with no acute ischemic changes Imaging studies independently reviewed: Chest x-ray from yesterday shows new consolidation right middle lobe suspicious for pneumonia follow up as needed. [id number] bilateral peribronchial thickening and patchy infiltrates. Treatments: Oral doxycycline, oral amoxicillin Discussion: Findings reviewed with the patient. At this point she is not hypoxic, no signs of sepsis, able to speak in full sentences, does appear to have a right middle lobe pneumonia without any complications or concerns for additional pathology or malignancy. Discussed use of antibiotics, wheeze doxycycline and cephalexin (no amoxicillin due to penicillin allergy) and reasons to return to the emergency department. I suspect that the hyponatremia is related to the pneumonia and with normal renal function I would expect it to resolve. I did suggest that she allow herself some potato chips over the next couple of days. No sign of acute coronary syndrome, no suggestion of congestive heart failure. No indication for further workup or hospitalization, Patient is safe for discharge at this time Discharge Plan Departure Patient Disposition: Home Clinical Impression: Right middle lobe pneumonia Qualifiers: Pneumonia type: due to unspecified organism Qualified Code(s): J18.9 - Pneumonia, unspecified organism Instructions: DI for Pneumonia -- Adult Activity Restrictions/Additional Instructions: Thank you for coming in today With the abnormal chest x-ray yesterday and concern for a middle lobe pneumonia, there can sometimes be other complications. Fortunately for you, the chest CT scan does not show any further complications and it looks like you have a simple community acquired bacterial pneumonia that should improve nicely with antibiotics. Because you are allergic to penicillin I am going to place you on doxycycline and cephalexin. Please complete this entire course. This should significantly decrease the amount of sputum that you are noticing with your cough. I also noticed that your salt level was a little bit low. Your kidney function otherwise looks perfect. We sometimes do see abnormal salt/sodium levels with pneumonia. I would recommend potato chips heard enjoying a salty treat for the next couple of days. I suspect your body will correct this as your pneumonia improves Prescriptions were sent electronically to [facility] in [place]. If you find that you are getting worse or develop any new symptoms, please feel free to return to the emergency department for further evaluation. Prescriptions: New doxycycline hyclate 100 mg capsule 100 mg PO BID Qty: 20 0RF cephalexin 500 mg capsule 500 mg PO TID Qty: 30 0RF Referrals: Bridgette Mathew ARNP [Primary Care Provider, Family Practice] Stand Alone Forms: Patient Portal/API
--- NOTE | 2024-12-17 15:35 | DI.CT.S_ITS ---
P of ROCEDURE: CT CHEST W CON INDICATIONS: middle lobe abnormality TECHNIQUE: After the administration of intravenous contrast, 5 mm thick sections acquired from the pulmonary apices to the posterior costophrenic angles. 1 mm axial lung, 5 mm thick coronal and sagittal reformats and 7 mm axial MIP were acquired. For radiation dose reduction, the following was used: automated exposure control, adjustment of mA and/or kV according to patient size. COMPARISON: [facility], CR, XR CHEST 2V, 12/16/2024, 16:35. FINDINGS: Image quality: Diagnostic. Lower Neck: No enlarged lymph nodes. Thyroid: No thyroid nodules which require sonographic follow up, per consensus guidelines. Axillae: No enlarged lymph nodes. Chest Wall: Midline sternotomy. Bones: Unremarkable. Lungs and Pleura: No pneumothorax or pleural effusions. There is dense consolidation and associated atelectasis present involving the lateral segment of the right middle lobe with extensive air bronchograms present. There is also patchy atelectasis in the basilar portion of the right lower lobe. Heart: Heart size is normal. Severe coronary artery calcifications. No pericardial effusion. Thoracic Vessels: The aorta and pulmonary arteries demonstrate normal size. Mediastinum and Maki: No enlarged lymph nodes. Multiple surgical clips are present in the anterior mediastinum. Esophagus: No wall thickening. Small hiatal hernia hiatal hernia. Upper Abdomen: Visualized upper abdomen solid organs and bowel loops appear normal. IMPRESSION: 1. Dense consolidation with associated atelectasis involving the lateral segment of the right middle lobe. 2. Patchy basilar portion right lower lobe atelectasis. 3. Severe coronary artery calcifications. Dictated by: Anthony Garcia M.D. on 12/17/2024 at 16:37 Approved by: Anthony Garcia M.D. on 12/17/2024 at 16:40
[2024-12-17 15:40] LABS: Add Manual Diff / Slide Review NO; Basophils Absolute Auto 0 /uL (0-100); Basophils Percent Auto 0.2 % (0-2); Eosinophils Absolute Auto 0 /uL (0-450); Eosinophils Percent Auto 0.1 % (2-4); Hematocrit 35.3 % (36-46); Hemoglobin 12.4 g/dL (12.0-16.0); Lymphocytes Absolute Auto 500 /uL (1100-4500); Lymphocytes Percent Auto 5.1 % (25-40); Mean Corpuscular HGB Conc 35.1 % (30-36); Mean Corpuscular Hemoglobin 31.3 PG (26-34); Mean Corpuscular Volume 89.1 fL (80-100); Monocytes Absolute Auto 900 /uL (0-900); Monocytes Percent Auto 9.4 % (3-14); Neutrophils Absolute Auto 8300 /uL (1500-7000); Neutrophils Percent Auto 85.2 % (50-75); Platelet Count 241 X10^3/uL (150-400); Red Blood Cell Count 3.97 X10^6/uL (4.0-5.2); Red Cell Distribution Width 13.6 % (11.6-14.8); White Blood Cell Count 9.7 X10^3/uL (4.5-11.0)
[2024-12-17 15:46] LABS: Alanine Aminotransferase 74 IU/L (<35); Albumin 4.3 g/dL (3.5-5.0); Albumin Globulin Ratio 1.3 (1.0-2.8); Alkaline Phosphatase 51 U/L (38-126); Aspartate Aminotransferase 78 IU/L (14-36); BUN Creatinine Ratio 19.5 (6-22); Blood Urea Nitrogen 15 mg/dL (7-17); Calcium 9.1 mg/dL (8.4-10.2); Carbon Dioxide 22 mmol/L (22-32); Chloride 95 mmol/L (98-107); Estimated Glomerular Filt Rate > 60 mL/min (>60); Globulin 3.4 g/dL (1.7-4.1); Glucose 104 mg/dL (70-99); HEMOLYSIS < 15 (0-50); Potassium 3.7 mmol/L (3.4-5.1); Sodium 128 mmol/L (137-145); Total Protein 7.7 g/dL (6.3-8.2)
[2024-12-17 15:59] LABS: Troponin I < 0.012 ng/mL (0.01-0.034)
--- NOTE | 2024-12-17 17:37 | PC.NURSE ---
Pt reports wet cough with phlegm x2 couple days. Feeling weak and low energy for several months (?). Pt reports losing 12 lbs in 14 days. Stats no appetite. Pt reports no hx of blood clots. NO fevers. Feels flushed. Pt reports getting dx with pneumonia today/yesterday and has not received any antibiotics yet. Hx of open heart surgery. Pt reports decreased in muscle tone over the last several months. Pt states she has had a yellow tongue.
--- NOTE | 2024-12-17 19:18 | PC.NURSE ---
Reassess; no change
[2024-12-17] MEDS: cephALEXin 250 MG CAPSULE 500 MG PO (19:20)
[2024-12-17] MEDS: DOXYCYCLINE HYCLATE 100 MG TABLET PO (19:20)
== END 2024-12-17 19:36 | disposition home or self-care (01) ==
PROVIDERS: Emergency Provider Emergency Medicine; Family Provider Physician Assistant; PCP Registered Nurse
DX: J18.9 Pneumonia, unspecified organism (principal); R07.9 Chest pain, unspecified
CPT/HCPCS: 71260; 80053; 84484; 85025; 93005; 99283; 99284; Q9967

== ENCOUNTER → 2024-12-27 16:22 | Outpatient (CLI) | payer MEDICARE, OTHER, SELFPAY ==
--- NOTE | 2024-12-27 16:26 | DI.RAD.S_ITS ---
PROCEDURE: XR CHEST 2V INDICATIONS: PNEUMONIA TECHNIQUE: 2 views of the chest were acquired. COMPARISON: [facility], CR, XR CHEST 2V, 12/16/2024, 16:35. FINDINGS: Surgical changes and devices: Median sternotomy sutures. Lungs and pleura: Lungs are clear. No pleural effusions or pneumothorax. Mediastinum: Mediastinal contours are normal. Heart size is normal. Bones and chest wall: No suspicious bony abnormalities. Soft tissues appear unremarkable. IMPRESSION: No acute cardiopulmonary abnormality is seen. Dictated by: Wily Vazquez M.D. on 12/28/2024 at 6:54 Approved by: Wily Vazquez M.D. on 12/28/2024 at 6:56
== END ==
PROVIDERS: Family Provider Physician Assistant; PCP Registered Nurse; Referring Provider Registered Nurse; Visit Provider Registered Nurse
DX: J18.9 Pneumonia, unspecified organism (principal)
CPT/HCPCS: 71046

== ENCOUNTER → 2025-01-04 10:01 | Outpatient (CLI) | payer MEDICARE, OTHER, SELFPAY ==
--- NOTE | 2025-01-04 10:02 | DI.ECHO.S_ITS ---
[facility] : : [address] : [address] : : [id number] : : Phone: [phone] Echocardiogram Report + + :Name: CLINTON BUENO Study Date: 01/04/2025 Height: 66 in : :[facility] ReadingLocation: Weight: 168 lb : : Gender: Female BSA: 1.9 m2 : :: 1945 Age: 79 yrs BP: 148/89 mmHg: :Reason For Study: ANGINA OF EFFORT : :Ordering Physician: SHONA, : :MARITZA Performed By: Beto Gómez : :Referring: MARITZA LÓPEZ : + + Interpretation Summary 1) Normal left ventricular size, wall motion, and systolic function (EF 60- 65%). 2) Normal right ventricular size and function. 3) Grade II diastolic dysfunction with elevated left atrial pressure. 4) There is mild aortic stenosis (valve area 1.5cm2, mean gradient 9.5mmHg, severity ratio 0.54). 5) There is mild mitral regurgitation. 6) Compared to the Echo done 09/27/2020, mild aortic stenosis is present on this study. Procedure: A two-dimensional transthoracic echocardiogram with color flow and Doppler was performed. The study quality was technically good. Comparison is made with the echocardiogram of 09/27/2020. The patient was in normal sinus rhythm during the exam. Left Ventricle: The left ventricle is normal in size. Left ventricular wall thickness is mildly increased. Proximal septal thickening is noted. There is no ventricular septal defect visualized. The ejection fraction is estimated to be 60-65%. There are no focal wall motion abnormalities. Grade II diastolic dysfunction with elevated left atrial pressure. Right Ventricle: The right ventricle is normal in size and function. Atria: The left atrium is moderately dilated. Right atrial size is normal. There is no Doppler evidence for an interatrial shunt. Mitral Valve: There is mild mitral annular calcification. The mitral valve leaflets appear mildly thickened. There is mild mitral regurgitation. Aortic Valve: The aortic valve is trileaflet. The aortic valve is mildly calcified. There is mild aortic stenosis. The peak aortic velocity is 2.07 m/sec. The aortic valve mean gradient is 9.5 mmHg. The calculated aortic valve area is 1.5 cm2. No aortic regurgitation is present. Tricuspid Valve: The tricuspid valve leaflets are thin and pliable. There is a trace or physiologic amount of tricuspid regurgitation. Pulmonic Valve: The pulmonic valve is not well seen, but is grossly normal. There is trace pulmonic regurgitation. Great Vessels: The aortic root is normal size. The dimensions of the ascending aorta are normal. The pulmonary artery is normal size. The IVC is of normal diameter and collapses greater than 50% with a sniff. This suggests a low right atrial pressure of 3 mm Hg. Pericardium/ Pleura There is no pericardial effusion. There is no pleural effusion. MMode/2D Measurements & Calculations LVIDd: 4.5 cm LVOT diam: 1.9 cm LVIDs: 2.7 cm Ao root diam: 2.5 cm FS: 38.8 % asc Aorta Diam: 3.1 cm EPSS: 0.55 cm IVSd: 1.1 cm LVPWd: 1.2 cm LV garnica. diameter/BSA (cm/m^2): 2.4 LV sys. diameter/BSA (cm/m^2): 1.5 LA A2 area: 22.9 cm2 RA long axis: 4.3 cm LA A4 area: 25.8 cm2 RA area: 14.7 cm2 LA length (vol): 5.7 cm RA vol: 42.2 ml LA vol: 88.4 ml RA : 22.7 ml/m2 LA vol index: 47.6 ml/m2 IVC diam: 1.3 cm RVD1 (basal): 3.4 cm RVD2 (mid): 2.5 cm TAPSE: 2.0 cm Doppler Measurements & Calculations Ao V2 max: 206.6 cm/sec LVOT Max Derek: 115.5 cm/sec Ao V2 mean: 145.7 cm/sec LV V1 max P.3 mmHg Ao max P.1 mmHg LV V1 VTI: 25.3 cm Ao mean P.5 mmHg JORDAN(I,D): 1.5 cm2 Ao V2 VTI: 46.6 cm JORDAN(V,D): 1.5 cm2 sev ratio: 0.54 JORDAN indexed to BSA (cm^2/m^2): 0.80 MV E max derek: 94.5 cm/sec TR max derek: 244.1 cm/sec MV A max derek: 37.6 cm/sec TR max P.8 mmHg MV E/A: 2.5 PA V2 max: 100.2 cm/sec Med Peak E' Derek: 5.3 cm/sec PA V2 mean: 71.7 cm/sec E/E' med: 17.8 PA mean P.3 mmHg Lat Peak E' Derek: 7.1 cm/sec PA pr(Accel): 51.6 mmHg E/E' lat: 13.3 E/e' average: 15.6 MV dec time: 0.15 sec SV(OT): 69.1 ml Reading Physician:05:53 PM
== END ==
LOC: ECHO 10:02
PROVIDERS: Family Provider Physician Assistant; PCP Registered Nurse; Referring Provider Internal Medicine Cardiovascular Disease; Visit Provider Internal Medicine Cardiovascular Disease
DX: I08.0 Rheumatic disorders of both mitral and aortic valves (principal); I25.118 Atherosclerotic heart disease of native coronary artery with other forms of angina pectoris; E78.5 Hyperlipidemia, unspecified; I10 Essential (primary) hypertension; Z95.1 Presence of aortocoronary bypass graft
CPT/HCPCS: 93306

== ENCOUNTER 2025-01-20 17:39 | Observation (INO) | payer MEDICARE, OTHER, SELFPAY ==
[2025-01-20 17:55] VITALS: BP 115/61; PULSE 66; RESP 20; TEMP 36.6; O2SAT 98; BMI 26.1
--- NOTE | 2025-01-20 18:07 | DI.RAD.S_ITS ---
PROCEDURE: XR CHEST 1V INDICATIONS: Possible stroke TECHNIQUE: One view of the chest was acquired. COMPARISON: [facility], CR, XR CHEST 2V, 12/16/2024, 16:35. [facility], CR, XR CHEST 2V, 12/27/2024, 16:34. [facility], CR, XR CHEST 1V, 01/28/2023, 14:01. FINDINGS: Surgical changes and devices: Sternotomy wires and mediastinal clips. Lungs and pleura: Lungs are clear. No pleural effusions or pneumothorax. Mediastinum: Mediastinal contours appear normal. Heart size is normal. Bones and chest wall: Remote prior healed fracture of the left clavicle shaft. IMPRESSION: No acute cardiopulmonary abnormality is seen. Approved by: Santos Villarreal M.D. on 01/20/2025 at 19:12
--- NOTE | 2025-01-20 18:07 | DI.CT.S_ITS ---
PROCEDURE: CT HEAD/BRAIN WO CON INDICATIONS: stroke symptoms TECHNIQUE: Noncontrast 4.5 mm thick angled axial sections acquired from the foramen magnum to the vertex, with coronal and sagittal reformats. For radiation dose reduction, the following was used: automated exposure control, adjustment of mA and/or kV according to patient size. COMPARISON: None. FINDINGS: Image quality: Diagnostic. CSF spaces: Basal cisterns are patent. No extra-axial fluid collections. The ventricles are symmetric in size and shape. Brain: No acute intracranial hemorrhage or mass effect. There is cerebral volume loss, with resultant ventricular and sulcal prominence. There are periventricular and deep white matter chronic small vessel ischemic changes. There is intracranial internal carotid artery atherosclerosis. Skull and face: Calvarium and visualized facial bones appear intact, without suspicious lesions. Sinuses: Visualized sinuses and mastoids are clear. IMPRESSION: 1. No acute intracranial pathology. 2. Mild chronic microvascular ischemic changes and generalized parenchymal volume loss. Approved by: Santos Villarreal M.D. on 01/20/2025 at 19:09
--- NOTE | 2025-01-20 18:30 | ED.NEUROSD ---
HPI - Neuro Symptoms/Deficit General Chief Complaint: Neuro Symptoms/Deficit Stated Complaint: pos symptoms of stroke,worried about having stroke Time Seen by Provider: 01/20/25 17:44 Mode of arrival: Ambulatory History of Present Illness HPI Narrative: 79-year-old female history of CAD status post two-vessel CABG, hypertension, hypothyroidism noticed at 5:00 p.m. last night left facial droop along with numbness and headache at the left frontal parietal region of her head. When she woke up this morning her symptoms have since resolved. She denies any headache nausea vomiting blurred vision difficulty speaking swallowing slurred speech hearing loss or vision loss or weakness in the arms or legs or gait instability. She denies chest pain shortness of breath but she does continue to have nonproductive cough as she just got over recently right-sided pneumonia. Other than what is stated 14 point review of system is negative. On Anticoagulants: Yes (ASA) Related Data Previous Rx's ?Medication ?Instructions ?Recorded cephalexin 500 mg capsule 500 mg PO TID #30 caps 12/17/24 doxycycline hyclate 100 mg capsule 100 mg PO BID #20 caps 12/17/24 Allergies Allergy/AdvReac Type Severity Reaction Status Date / Time Penicillins Allergy Unknown Verified 01/20/25 17:56 Sulfa (Sulfonamide Allergy Unknown Verified 01/20/25 17:56 Antibiotics) Review of Systems Review of Systems ROS Unobtainable: All systems reviewed & are unremarkable except as noted in HPI and below Hematologic/Lymphatic On Anticoagulants: Yes (ASA) Patient History Medical History (Updated 01/20/25 @ 21:23 by Carmine Pritchard DO) Coronary artery abnormality Social History Smoking Status: Never smoker Smoking Status: Never smoker alcohol intake frequency: holidays/special occasions only Exam Narrative Exam Narrative: GENERAL: [79] year old patient appears stated age. Well-developed patient, in mild distress. HEAD: Atraumatic. Normocephalic. EYES: Pupils equal round and reactive. Extraocular motions intact. No scleral icterus. No injection or drainage. ENT: Nose without bleeding, purulent drainage. Throat without erythema, tonsillar hypertrophy or exudate. Airway patent. NECK: Trachea midline. Non tender CARDIOVASCULAR: Regular rate and rhythm without murmurs, gallops, or rubs. RESPIRATORY: Clear to auscultation. Breath sounds equal bilaterally. No wheezes, rales, or rhonchi. GASTROINTESTINAL: Abdomen soft, non-tender, nondistended. EXTREMITIES: No edema or joint tenderness. BACK: Nontender without deformity or crepitance. No flank tenderness. NEURO: AOx3. GCS 15 nonfocal neuro exam. 5/5 bilateral upper and lower extremity [id number] opposite to heal rapid alternating movements negative Romberg SKIN: No rash or erythema of visible areas Initial Vital Signs Initial Vital Signs: Vital Signs Temperature 98 F 01/20/25 17:55 Pulse Rate 66 01/20/25 17:55 Respiratory Rate 20 01/20/25 17:55 Blood Pressure 115/61 01/20/25 17:55 Pulse Oximetry 98 01/20/25 17:55 Oxygen Delivery Method Room Air 01/20/25 17:55 Scores NIH Stroke Scale Level of Conciousness: Alert, keenly responsive Ask month/age: Answers both questions correctly. Open/close eyes, close hand: Performs both tasks correctly Best gaze horizontal: Normal Visual dubon: No visual loss Facial palsy: Normal symetrical movement Left arm drift: No drift for full 10 sec Right arm drift: No drift for full 10 sec Left leg drift: No drift for full 5 sec Right leg drift: No drift for full 5 sec Limb ataxia: Absent Sensory on face/arms/legs: Normal, no sensory loss Best language: No aphasia, normal Dysarthria: Normal Extinction or inattention: No abnormality Total NIH Stroke scale score: 0 Course Orders Ordered: ED Orders 01/20/25 18:07 CT head/brain wo con Stat XR chest 1V Stat Urine Drug Screen, Rapid Stat EKG-12 Lead Stat 01/20/25 18:41 CT angio head and neck Stat 01/20/25 18:57 Complete Blood Count AUTO DIFF Stat Comprehensive Metabolic Panel Stat PTT Partial Thromboplastin Porfirio Stat Prothrombin Time INR Stat Troponin & CK Cardiac Panel Stat Ondansetron HCl (Ondansetron 4 Mg/2 Ml Inj) 4 mg IV NOW PRN PRN Reason: Nausea And Vomiting Ondansetron HCl (Ondansetron 4 Mg Odt) 4 mg PO NOW PRN PRN Reason: Nausea And Vomiting Discontinued Medications Aspirin (Aspirin Ec 81 Mg Tablet) 81 mg PO NOW ONE Stop: 01/20/25 20:45 Vital Signs Vital signs: Vital Signs - 8 hr 01/20/25 17:55 Temperature 98 F Pulse Rate 66 Respiratory Rate 20 Blood Pressure 115/61 Pulse Oximetry 98 Oxygen Delivery Method Room Air MDM - Neuro Symptoms/Deficit Lab Data 01/20/25 18:57 01/20/25 18:57 Labs: Lab Results 01/20/25 Range/Units 18:57 WBC 9.1 (4.5-11.0) X10^3/uL RBC 4.43 (4.0-5.2) X10^6/uL Hgb 13.5 (12.0-16.0) g/dL Hct 39.9 (36-46) % MCV 90.1 (80-100) fL MCH 30.4 (26-34) PG MCHC 33.7 (30-36) % RDW 14.4 (11.6-14.8) % Plt Count 271 (150-400) X10^3/uL Neut % (Auto) 75.8 H (50-75) % Lymph % (Auto) 13.0 L (25-40) % [place] % (Auto) 8.4 (3-14) % Eos % (Auto) 1.6 L (2-4) % Baso % (Auto) 1.2 (0-2) % Neut # (Auto) 6900 (9017-0196) /uL Lymph # (Auto) 1200 (2021-8929) /uL [place] # (Auto) 800 (0-900) /uL Eos # (Auto) 100 (0-450) /uL Baso # (Auto) 100 (0-100) /uL PT 11.8 (9.4-12.5) SECONDS INR 1.0 (0.9-1.3) APTT 34 (25.1-36.5) SECONDS Sodium 131 L (137-145) mmol/L Potassium 3.7 (3.4-5.1) mmol/L Chloride 97 L (98-107) mmol/L Carbon Dioxide 24 (22-32) mmol/L BUN 15 (7-17) mg/dL Creatinine 0.80 (0.52-1.04) mg/dL Estimated GFR > 60 (>60) mL/min BUN/Creatinine Ratio 18.8 (6-22) Glucose 104 H (70-99) mg/dL Calcium 9.6 (8.4-10.2) mg/dL Total Bilirubin 1.5 H (0.2-1.3) mg/dL AST 33 (14-36) IU/L ALT 24 (<35) IU/L Alkaline Phosphatase 62 (38-126) U/L Total Creatine Kinase 68 (30-135) U/L Troponin I < 0.012 (0.01-0.034) ng/mL Total Protein 8.5 H (6.3-8.2) g/dL Albumin 4.8 (3.5-5.0) g/dL Globulin 3.7 (1.7-4.1) g/dL Albumin/Globulin Ratio 1.3 (1.0-2.8) Imaging Data CTA - brain/neck: Radiologist's Impression: [address] [address] [address] Scan Report Signed Patient: Carol Yates MR#: [id number] : 1945 Acct:[id number] Age/Sex: 79 / F Date of Service: 01/20/25 Loc: ED Accession Number: [id number] Procedure: CT angio head and neck Ordering Provider: Carmine Pritchard D.O. PROCEDURE: CT ANGIO HEAD AND NECK INDICATIONS: L sided facial droop yesterday 5pm TECHNIQUE: After the administration of intravenous contrast, 1 mm thick sections acquired from the aortic arch through the [place] of [place]. 3-dimensional rhmpmoj-rzlgpghgs-mmdanjgaym (MIP) and/or volume rendering reformats were acquired of the central intracranial vasculature and neck separately. For radiation dose reduction, the following was used: automated exposure control, adjustment of mA and/or kV according to patient size. COMPARISON: [facility], CT, CT HEAD/BRAIN WO CON, 01/20/2025, 18:16. FINDINGS: Image quality: Diagnostic. Cerebral CT Angiogram: Internal carotid arteries: No acute findings. Intracranial ICA are patent with no significant stenosis. No occlusion. No aneurysm. Anterior cerebral arteries: Unremarkable. No significant stenosis. No occlusion. No aneurysm. Middle cerebral arteries: Unremarkable. No significant stenosis. No occlusion. No aneurysm. Posterior cerebral arteries: type origin of the right INFORMATICS SPECIALIST, a normal variant.. No significant stenosis. No occlusion. No aneurysm. Basilar artery: Unremarkable. No significant stenosis. No occlusion. No aneurysm. Vertebral arteries: Right vertebral artery provides the main supply to the basilar artery. Intracranial left vertebral artery is difficult to visualize and may terminate in the left PICA. No significant stenosis is seen. Dural venous sinuses: Unremarkable given phase of enhancement. Other: Arterial phase appearance of the brain parenchyma is unremarkable. Neck CT Angiogram: Internal carotid arteries: Atherosclerotic calcifications at the bilateral carotid bifurcations resulting in approximately 60% narrowing of the proximal internal carotid arteries bilaterally. No dissection or occlusion. Common carotid arteries: Mildly tortuous retropharyngeal courses of the common carotid arteries bilaterally. No significant stenosis. No dissection or occlusion. External carotid arteries: Unremarkable. No occlusion. Vertebral arteries: Right vertebral artery is congenitally dominant. No significant stenosis. No dissection or occlusion. Aortic Arch and Mediastinum: Partially visualized aortic arch unremarkable without evidence of aneurysm. Origins of the great vessels unremarkable. Other: Arterial phase soft tissues of the neck and chest are unremarkable. Degenerative changes are seen in the cervical spine. IMPRESSION: No significant intracranial arterial abnormality is seen. Focal approximately 60% narrowing of the bilateral internal carotid arteries at the carotid bifurcations. Any quantitative measurements of stenosis were performed using NASCET criteria. ECG Data Interpretation: NSR HR 64 ME 188 QRS [address]-t wave change Unchanged from 12/17/24 MDM Narrative Medical decision making narrative: Vital signs, nurse triage note, medication list, previous ER visits, and all imaging studies reviewed. CT head and neck show focal approximately 60% narrowing of the bilateral internal carotid arteries at the carotid bifurcation. But no significant intracranial arterial abnormality seen. CT head showed no acute intracranial pathology. Mild chronic microvascular ischemic changes. NIH stroke scale of 0 nonfocal neuro exam GCS 15. Sodium 131 chloride 97 troponin normal. Differential diagnosis includes CVA TIA subdural hematoma aneurysm dental abscess atypical migraine. Case discussed with Dr. Perez who has graciously accepted the patient for inpatient admission. Discharge Plan Departure Patient Disposition: Admitted As Inpatient Clinical Impression: Transient cerebral ischemia Admit Date/Time: 01/20/25 21:21 Admit Provider: Carmine Perez
--- NOTE | 2025-01-20 18:41 | DI.CT.S_ITS ---
PROCEDURE: CT ANGIO HEAD AND NECK INDICATIONS: L sided facial droop yesterday 5pm TECHNIQUE: After the administration of intravenous contrast, 1 mm thick sections acquired from the aortic arch through the [place] of [place]. 3-dimensional qtexhmc-svbvwcumx-bulnofdhwo (MIP) and/or volume rendering reformats were acquired of the central intracranial vasculature and neck separately. For radiation dose reduction, the following was used: automated exposure control, adjustment of mA and/or kV according to patient size. COMPARISON: [facility], CT, CT HEAD/BRAIN WO [facility], 01/20/2025, 18:16. FINDINGS: Image quality: Diagnostic. Cerebral CT Angiogram: Internal carotid arteries: No acute findings. Intracranial ICA are patent with no significant stenosis. No occlusion. No aneurysm. Anterior cerebral arteries: Unremarkable. No significant stenosis. No occlusion. No aneurysm. Middle cerebral arteries: Unremarkable. No significant stenosis. No occlusion. No aneurysm. Posterior cerebral arteries: type origin of the right QUANTITATIVE ANALYST, a normal variant.. No significant stenosis. No occlusion. No aneurysm. Basilar artery: Unremarkable. No significant stenosis. No occlusion. No aneurysm. Vertebral arteries: Right vertebral artery provides the main supply to the basilar artery. Intracranial left vertebral artery is difficult to visualize and may terminate in the left PICA. No significant stenosis is seen. Dural venous sinuses: Unremarkable given phase of enhancement. Other: Arterial phase appearance of the brain parenchyma is unremarkable. Neck CT Angiogram: Internal carotid arteries: Atherosclerotic calcifications at the bilateral carotid bifurcations resulting in approximately 60% narrowing of the proximal internal carotid arteries bilaterally. No dissection or occlusion. Common carotid arteries: Mildly tortuous retropharyngeal courses of the common carotid arteries bilaterally. No significant stenosis. No dissection or occlusion. External carotid arteries: Unremarkable. No occlusion. Vertebral arteries: Right vertebral artery is congenitally dominant. No significant stenosis. No dissection or occlusion. Aortic Arch and Mediastinum: Partially visualized aortic arch unremarkable without evidence of aneurysm. Origins of the great vessels unremarkable. Other: Arterial phase soft tissues of the neck and chest are unremarkable. Degenerative changes are seen in the cervical spine. IMPRESSION: No significant intracranial arterial abnormality is seen. Focal approximately 60% narrowing of the bilateral internal carotid arteries at the carotid bifurcations. Any quantitative measurements of stenosis were performed using NASCET criteria. Approved by: Santos Villarreal M.D. on 01/20/2025 at 19:36
--- NOTE | 2025-01-20 19:02 | EKG_ITS ---
[place] [address] [place] [id number] Test Date: 2025-01-20 Pat Name: Carol Yates Department: [facility] Room: Gender: Female Director Of Consumer Marketing: RIKKI : 1945 Requested By: Order Number: [id number] Reading MD: Ronald Manrique Measurements Intervals [place] Rate: 64 P: 57 [place]: 188 QRS: 6 QRSD: 86 T: 47 QT: 412 QTc: 425 Interpretive Statements Normal sinus rhythm ST & T wave abnormality, consider anterolateral ischemia Electronically Signed On 01-28-2025 13:56:46 PDT by Ronald Manrique
[2025-01-20 19:06] LABS: Add Manual Diff / Slide Review NO; Hematocrit 39.9 % (36-46); Hemoglobin 13.5 g/dL (12.0-16.0); Lymphocytes Absolute Auto 1200 /uL (1100-4500); Mean Corpuscular HGB Conc 33.7 % (30-36); Mean Corpuscular Hemoglobin 30.4 PG (26-34); Mean Corpuscular Volume 90.1 fL (80-100); Platelet Count 271 X10^3/uL (150-400)
[2025-01-20 19:17] LABS: Alanine Aminotransferase 24 IU/L (<35); Albumin 4.8 g/dL (3.5-5.0); Albumin Globulin Ratio 1.3 (1.0-2.8); Alkaline Phosphatase 62 U/L (38-126); Blood Urea Nitrogen 15 mg/dL (7-17); Calcium 9.6 mg/dL (8.4-10.2); Carbon Dioxide 24 mmol/L (22-32); Chloride 97 mmol/L (98-107); Creatine Kinase 68 U/L (30-135); Estimated Glomerular Filt Rate > 60 mL/min (>60); Globulin 3.7 g/dL (1.7-4.1); Glucose 104 mg/dL (70-99); HEMOLYSIS 16 (0-50); Potassium 3.7 mmol/L (3.4-5.1); Sodium 131 mmol/L (137-145); Total Protein 8.5 g/dL (6.3-8.2)
[2025-01-20 19:29] LABS: Troponin I < 0.012 ng/mL (0.01-0.034)
[2025-01-20 19:31] LABS: INR 1.0 (0.9-1.3); Prothrombin Time 11.8 SECONDS (9.4-12.5)
[2025-01-20 19:34] LABS: PTT Partial Thromboplastin Tim 34 SECONDS (25.1-36.5)
[2025-01-20] MEDS: ASPIRIN EC 81 MG TABLET PO (21:41)
[2025-01-20 22:15] VITALS: BP 156/70; PULSE 65; RESP 19; TEMP 36.3; O2SAT 99
[2025-01-20 22:17] LABS: Cholesterol 103 mg/dL (140-199); HDL Cholesterol 44 mg/dL (40-60); Triglycerides 152 mg/dL (35-150)
[2025-01-20 22:20] VITALS: BMI 27.2
[2025-01-21 06:00] VITALS: BP 118/52; PULSE 57; RESP 17; TEMP 36.6; O2SAT 96
--- NOTE | 2025-01-21 07:00 | DI.MRI.S_ITS ---
PROCEDURE: MR HEAD/BRAIN WO CON INDICATIONS: tia TECHNIQUE: Non-contrast axial T1 spin echo, axial T2 fast spin echo, sagittal and axial FLAIR, coronal T2 fast spin echo, axial gradient echo, axial diffusion and ADC through the brain. COMPARISON: [facility], CT, CT HEAD/BRAIN WO CON, 01/20/2025, 18:16. [facility], CT, CT ANGIO HEAD AND NECK, 01/20/2025, 19:07. FINDINGS: Image quality: Excellent. CSF spaces: Ventricles appear symmetric in size and shape. Basal cisterns are patent. No extra-axial fluid collections. Brain: No intracranial bleeds or mass effects. There is cerebral volume loss for age. There are periventricular and deep white matter chronic small vessel ischemic changes. Brainstem appears normal. Diffusion-weighted images show no acute infarct. No chronic ischemic insults. Normal intravascular flow voids are present. Skull and face: Calvarial bone marrow is normal in signal. Orbits are normal. Note is made of bilateral lens replacements. Sinuses: Sinuses and mastoids are clear. IMPRESSION: No findings of acute or subacute infarction can be seen. No prior territorial infarct can be seen. Note is made of age-appropriate brain parenchymal volume loss and chronic small vessel ischemic changes. Dictated by: Haris Cline M.D. on 01/21/2025 at 10:21 Approved by: Haris Cline M.D. on 01/21/2025 at 10:22
[2025-01-21 07:52] VITALS: BP 148/67; PULSE 70; RESP 17; TEMP 36.2; O2SAT 96
[2025-01-21] MEDS: ENOXAPARIN 40 MG/0.4 ML SYRINGE SUBCUT (08:36)
[2025-01-21] MEDS: CLOPIDOGREL 75 MG TABLET PO (08:36)
[2025-01-21] MEDS: ASPIRIN EC 81 MG TABLET PO (08:36)
[2025-01-21 10:40] VITALS: BP 155/72; PULSE 64
[2025-01-21] MEDS: AMLODIPINE 5 MG TABLET PO (10:40)
[2025-01-21 10:41] VITALS: BP 155/78; PULSE 64
--- NOTE | 2025-01-21 11:35 | CM.DANOTE ---
DCP Assessment Note: Pt is a 79yo female, resident of [place], is admitted for TIA workup. Pt lives in a house with her spouse, Piero. Pt's Primary Care Provider is IMELDA Faith and insurance is Medicare and [employer]. Reviewed chart and discussed with multidisciplinary team pt's medical status and initial discharge needs. Per provider, pt might be able to dc home after MRI if cleared. DCP met w/patient at bedside; introduced self and role. Present in the room is pt's , Piero/Dionisio. Patient was found in bed, alert and oriented, cooperative with assessment. Pt confirmed living situation and good support in . Pt expressed preference in discharge home if MRI negative. Pt has a hx of home health after open heart surgery 3 years ago (can't remember agency). No SNF Rehab history. No DME need/use, independent at baseline. Plan: Anticipating dc home with spouse to transport when medically cleared. CM team will follow closely for coordination of discharge plans. Zainab Conteh [facility] Discharge Planning/Care Management CM Discharge Assessment Start: 01/20/25 22:19 Freq: Status: Active Protocol: Document 01/21/25 11:28 MW (Rec: 01/21/25 11:34 MW [id number]) Discharge Planning Assessment Assigned Discharge ISAEL [employer] Transportation Supervisor DPOA/Assigned Piero, Spouse Designee Name Contact Information [phone] Advance Directives? Yes Advance Directives No on File History Provided By Patient,Medical Record Prior Living House Arrangements Comment [place] Household Members spouse Independent with ADL Yes 's Is patient alert and Yes oriented? Caregiver for No Another Discharge Plan Home Transportation Spouse Arrangement Referrals Initiated None needed Whiteboard Updated Yes in Patient Room with name and ext. # of Track Sweeper Comment [phone] Review Status In Process Please Provide Date 01/21/25 Initial DC Assessment Was Performed Next Review Type Continued Stay Review
[2025-01-21 11:45] VITALS: BP 118/63; PULSE 63; RESP 16; TEMP 36.3; O2SAT 97
[2025-01-21 15:00] VITALS: BP 154/74; PULSE 63; RESP 18; TEMP 36.3; O2SAT 96
--- NOTE | 2025-01-21 16:18 | PM.HP.1 ---
History of Present Illness History of Present Illness Date Patient Seen: 01/21/25 Time Patient Seen: 09:00 Chief complaint: pos symptoms of stroke,worried about having stroke Narrative: Chief complaint: changed sensation on left side of face Patient presented via ED this morning for concern for possible new stroke she does have strong family history but no personal history of stroke. Last night started having left-sided facial droop numbness and headache which had improved by this morning relatively benign exam per ED note reassuring CT, was admitted for further workup with no initial findings concerning except for lateralizing facial droop to the left side this morning facial droop is still present but improved she is still having some change sensation on the left side of her face but motor control is nearly within normal limits. We will plan on getting an MRI today to follow up to see if she did indeed have a stroke. She feels fine this morning and greets me at the door appetite is normal sleep was good. [facility] Medical History (Updated 01/20/25 @ 21:23 by Carmine Pritchard DO) Coronary artery abnormality Social History household members: spouse Smoking Status: Never smoker alcohol intake: current Meds Home Medications and Allergies Home Medications ?Medication ?Instructions ?Recorded ?Confirmed ?Type amlodipine 5 mg tablet 5 mg PO DAILY 01/20/25 01/20/25 History aspirin 81 mg tablet,delayed 81 mg PO DAILY 01/20/25 01/20/25 History release (Adult Low Dose Aspirin) carvedilol 3.125 mg tablet 3.125 mg PO BID 01/20/25 01/20/25 History duloxetine 30 mg capsule,delayed 60 mg PO QPM 01/20/25 01/20/25 History release ezetimibe 10 mg tablet 10 mg PO QAM 01/20/25 01/20/25 History hydrochlorothiazide 25 mg tablet 12.5 mg PO .three times a week 01/20/25 01/20/25 History levothyroxine 75 mcg tablet 75 mcg PO QAM 01/20/25 01/20/25 History lisinopril 40 mg tablet 40 mg PO DAILY 01/20/25 01/20/25 History metformin 500 mg tablet,extended 500 mg PO QAM 01/20/25 01/20/25 History release 24 hr pantoprazole 40 mg tablet,delayed 40 mg PO QAM 01/20/25 01/20/25 History release rosuvastatin 40 mg tablet 40 mg PO ONCE PM 01/20/25 01/20/25 History Allergies Allergy/AdvReac Type Severity Reaction Status Date / Time Penicillins Allergy Unknown Verified 01/21/25 13:50 Sulfa (Sulfonamide Allergy Unknown Verified 01/20/25 17:56 Antibiotics) Review of Systems Review of Systems Narrative: All systems reviewed and negative except as otherwise documented in HPI Exam Vital Signs (past 8 hours): - 01/21/25 10:40 01/21/25 10:41 01/21/25 11:45 Temperature 97.3 F L Pulse Rate 64 64 63 Respiratory Rate 16 Blood Pressure 155/72 H 155/78 H 118/63 Pulse Oximetry 97 Oxygen Flow Rate 0 01/21/25 15:00 Temperature 97.4 F L Pulse Rate 63 Respiratory Rate 18 Blood Pressure 154/74 H Pulse Oximetry 96 Oxygen Flow Rate 0 Oxygen Delivery Method Room Air Oxygen Flow Rate 0 Narrative Exam Narrative: Standing next to bed Const Other: Well-developed well-nourished HENMS Other: Normocephalic atraumatic Eyes Other: Extraocular movement intact pupils equally round and reactive to light and accommodation Resp Other: Clear to auscultation bilaterally Cardio Other: Regular rate and rhythm S1-S2 no pedal edema GI Other: Soft nontender active bowel sounds Neuro Other: Alert awake fully oriented cranial nerves 2-10 are grossly intact except for a very slight left sided facial droop and reported intact but changed sensation on left side of face. Visual dubon intact to confrontation. Objective Labs 01/20/25 18:57 01/20/25 18:57 Labs: Laboratory Results - last 24 hr 01/20/25 18:57 WBC 9.1 RBC 4.43 Hgb 13.5 Hct 39.9 MCV 90.1 MCH 30.4 MCHC 33.7 RDW 14.4 Plt Count 271 Neut % (Auto) 75.8 H Lymph % (Auto) 13.0 L [place] % (Auto) 8.4 Eos % (Auto) 1.6 L Baso % (Auto) 1.2 Neut # (Auto) 6900 Lymph # (Auto) 1200 [place] # (Auto) 800 Eos # (Auto) 100 Baso # (Auto) 100 PT 11.8 INR 1.0 APTT 34 Sodium 131 L Potassium 3.7 Chloride 97 L Carbon Dioxide 24 BUN 15 Creatinine 0.80 Estimated GFR > 60 BUN/Creatinine Ratio 18.8 Glucose 104 H Calcium 9.6 Total Bilirubin 1.5 H AST 33 ALT 24 Alkaline Phosphatase 62 Total Creatine Kinase 68 Troponin I < 0.012 Total Protein 8.5 H Albumin 4.8 Globulin 3.7 Albumin/Globulin Ratio 1.3 Triglycerides 152 H Cholesterol 103 L LDL Cholesterol, Calc 29 HDL Cholesterol 44 Assessment & Plan Assessment & Plan narrative: #CVA possible Now outside window for acute intervention continue aspirin full dose we will get MRI there are residual lateralizing features here could represent a stroke certainly. # primary hypertension Allow permissive hypertension for now blood pressure goal under 180 systolic #mixed hyperlipidemia Continue home antihyperlipidemic medications # [id number]-zqtymimpk diabetes Stable resume home meds # hypothyroidism acquired Stable continue home meds Dispo: pending MRI PCP: Quincy WORLEY diet: diabetic code: Full MDM: Time-Based Coding :: [TOTAL MINUTES] spent with patient and on the chart (including review of chart, obtaining history, exam, reviewing outside data, placing orders, documenting exam and treatment plan, and counseling patient) on [DATE]. Quality VTE Deep Vein Thrombosis/Pulmonary Embolism Present on Admission: No
--- NOTE | 2025-01-21 16:25 | P.DS_ITS ---
History of Present Illness History of Present Illness Date Patient Seen: 01/21/25 Time Patient Seen: 16:25 Date of Onset of Symptoms: 01/20/25 Chief complaint: pos symptoms of stroke,worried about having stroke Narrative: Chief complaint: changed sensation on left side of face Patient presented via ED this morning for concern for possible new stroke she does have strong family history but no personal history of stroke. Last night started having left-sided facial droop numbness and headache which had improved by this morning relatively benign exam per ED note reassuring CT, was admitted for further workup with no initial findings concerning except for lateralizing facial droop to the left side this morning facial droop is still present but improved she is still having some change sensation on the left side of her face but motor control is nearly within normal limits. We will plan on getting an MRI today to follow up to see if she did indeed have a stroke. She feels fine this morning and greets me at the door appetite is normal sleep was good. Discharge Providers Provider Date of admission: 01/20/25 21:21 Discharge Date: 01/21/25 Primary care physician: IMELDA Faith Discharge provider: Quan Mary MD Summary Hospital Course Discharge Diagnosis: #CVA/TIA # primary hypertension #mixed hyperlipidemia # [id number] diabetes # hypothyroidism acquired Hospital Course: Ms. Yates is a pleasant 79-year-old who presented to ED with concern for possible stroke she does have a strong family history with left-sided facial droop and weakness with change sensation. She was admitted for further workup although initial exam and scans were negative for CT by the end of the day we were able to obtain an MRI which was clear her exam remains barely perceptible as lateralizing at all she reports it is does feel much better than it did yesterday plan is to continue statin aspirin and follow-up in clinic as outpatient. Status at Discharge Cognitive/behavioral status at discharge: at baseline, oriented Functional status at discharge: independent ambulation Overall status at discharge: patient is back to baseline Exam Vital Signs (past 8 hours): - 01/21/25 10:40 01/21/25 10:41 01/21/25 11:45 Temperature 97.3 F L Pulse Rate 64 64 63 Respiratory Rate 16 Blood Pressure 155/72 H 155/78 H 118/63 Pulse Oximetry 97 Oxygen Flow Rate 0 01/21/25 15:00 Temperature 97.4 F L Pulse Rate 63 Respiratory Rate 18 Blood Pressure 154/74 H Pulse Oximetry 96 Oxygen Flow Rate 0 Oxygen Delivery Method Room Air Oxygen Flow Rate 0 Narrative Exam Narrative: Resting comfortably in bed Const Other: Well-developed well-nourished Eyes Other: Extraocular movements intact pupils equally round and reactive to light and accommodation Resp Other: Clear to auscultation bilaterally with wet productive cough left over from pneumonia last week Cardio Other: Regular rate and rhythm S1-S2 no pedal edema GI Other: Soft nontender active bowel sounds Skin Other: No rashes noted Neuro Other: Alert awake fully oriented with very faint residual left-sided facial droop normal facial movements grossly still lightly change sensation of left-sided face otherwise cranial nerves grossly intact Extrem Other: Moving all extremities equally Objective Labs 01/20/25 18:57 01/20/25 18:57 Labs: Laboratory Results - last 24 hr 01/20/25 18:57 WBC 9.1 RBC 4.43 Hgb 13.5 Hct 39.9 MCV 90.1 MCH 30.4 MCHC 33.7 RDW 14.4 Plt Count 271 Neut % (Auto) 75.8 H Lymph % (Auto) 13.0 L [place] % (Auto) 8.4 Eos % (Auto) 1.6 L Baso % (Auto) 1.2 Neut # (Auto) 6900 Lymph # (Auto) 1200 [place] # (Auto) 800 Eos # (Auto) 100 Baso # (Auto) 100 PT 11.8 INR 1.0 APTT 34 Sodium 131 L Potassium 3.7 Chloride 97 L Carbon Dioxide 24 BUN 15 Creatinine 0.80 Estimated GFR > 60 BUN/Creatinine Ratio 18.8 Glucose 104 H Calcium 9.6 Total Bilirubin 1.5 H AST 33 ALT 24 Alkaline Phosphatase 62 Total Creatine Kinase 68 Troponin I < 0.012 Total Protein 8.5 H Albumin 4.8 Globulin 3.7 Albumin/Globulin Ratio 1.3 Triglycerides 152 H Cholesterol 103 L LDL Cholesterol, Calc 29 HDL Cholesterol 44 [facility] Medical History (Updated 01/20/25 @ 21:23 by Carmine Pritchard DO) Coronary artery abnormality Social History household members: spouse Smoking Status: Never smoker alcohol intake: current Discharge Assessment & Plan Assessment and Plan Assessment: #CVA/TIA Seems to be almost fully resolved if this was indeed a stroke Recommend continue full-dose aspirin for the next 2 days then resume 81 mg daily Continue rosuvastatin and Zetia Plan on follow-up in clinic next week # primary hypertension Stable resume home meds #mixed hyperlipidemia Continue home antihyperlipidemic medications Zetia and rosuvastatin # [id number] diabetes Stable resume home meds # hypothyroidism acquired Stable continue home meds Dispo: Home to follow up as outpatient PCP: Quincy WORLEY diet: diabetic code: Full MDM: Discharge Plan Discharge Plan Patient Disposition: Home Provider Discharge Comment: Home to follow up as outpatient Discharge orders & Medications Prescriptions: Continued amlodipine 5 mg tablet 5 mg PO DAILY carvedilol 3.125 mg tablet 3.125 mg PO BID levothyroxine 75 mcg tablet 75 mcg PO QAM pantoprazole 40 mg tablet,delayed release (DR/EC) 40 mg PO QAM hydrochlorothiazide 25 mg tablet 12.5 mg PO .three times a week Rx Instructions: W lisinopril 40 mg tablet 40 mg PO DAILY metformin 500 mg tablet extended release 24 hr 500 mg PO QAM ezetimibe 10 mg tablet 10 mg PO QAM rosuvastatin 40 mg tablet 40 mg PO ONCE PM duloxetine 30 mg capsule,delayed release(DR/EC) 60 mg PO QPM aspirin [Adult Low Dose Aspirin] 81 mg tablet,delayed release (DR/EC) 81 mg PO DAILY Follow up/Referrals: Bridgette Mathew ARNP [Primary Care Provider, [facility]] Visit Report/Discharge Packet Stand Alone Forms: Patient Portal/API, Stroke Signs & Symptoms Discharge Data Primary Care Provider: Bridgette Mathew Attending Provider: Quan Mary Admgood Date/Time: 01/20/25 21:21 Quality VTE Deep Vein Thrombosis/Pulmonary Embolism Present on Admission: No
== END 2025-01-21 17:27 | disposition home or self-care (01) ==
LOC: ED 17:59 → AC 21:22
PROVIDERS: Admitting Provider Internal Medicine; Emergency Provider Family Medicine; Family Provider Physician Assistant; PCP Registered Nurse; Referring Provider Family Medicine; Visit Provider Family Medicine
DX: R29.810 Facial weakness (principal); R20.0 Anesthesia of skin; R51.9 Headache, unspecified; I10 Essential (primary) hypertension; R29.700 NIHSS score 0; E11.9 Type 2 diabetes mellitus without complications; E78.2 Mixed hyperlipidemia; Z79.82 Long term (current) use of aspirin; Z79.84 Long term (current) use of oral hypoglycemic drugs; Z95.1 Presence of aortocoronary bypass graft; Z82.3 Family history of stroke
CPT/HCPCS: 36415; 70450; 70496; 70498; 70551; 71045; 80053; 80061; 82550; 84484; 85025; 85610; 85730; 93005; 96372; 99284; G0378; J1650; Q9967

== ENCOUNTER → 2025-02-22 14:08 | Outpatient (CLI) | payer MEDICARE, OTHER, SELFPAY ==
[2025-02-07 15:11] VITALS: BMI 27.2
--- NOTE | 2025-02-22 14:09 | DI.US.S_ITS ---
PROCEDURE: US CAROTID DOPPLER BI INDICATIONS: TRANSIENT ISCHEMIC ATTACK TECHNIQUE: Color and pulse Doppler interrogation was performed of both carotid systems, with image documentation and velocity measurements. COMPARISON: None. FINDINGS: Stenosis calculations are based on SRU (Society of Radiologists in Ultras[employer]) criteria. Right side: Brachial blood pressure: 120/63 mm Hg. Common carotid artery peak systolic velocity: 85 cm/sec. Internal carotid artery peak systolic velocity: 116 cm/sec. Internal carotid artery end diastolic velocity: 25 cm/sec. External carotid artery peak systolic velocity: 130 cm/sec. ICA/CCA peak systolic ratio: 1.4 . Delgado scale imaging description: Moderate scattered plaque. Percent internal carotid artery stenosis: Less than 50% . Vertebral artery: Flow direction is antegrade. Left side: Brachial blood pressure: 106/62 mm Hg. Common carotid artery peak systolic velocity: 83 cm/sec. Internal carotid artery peak systolic velocity: 135 cm/sec. Internal carotid artery end diastolic velocity: 22 cm/sec. External carotid artery peak systolic velocity: 112 cm/sec. ICA/CCA peak systolic ratio: 1.6 . Delgado scale imaging description: Moderate scattered plaque. Percent internal carotid artery stenosis: Less than 50% . Vertebral artery: Flow direction is antegrade. IMPRESSION: Less than 50% bilateral internal carotid artery stenosis. Dictated by: Pawan Segura RR Interpreted: Tawanda Zarate MD on 02/22/2025 at 15:22 Transcribed by: KATHY on 02/22/2025 at 15:24 Approved by: Tawanda Zarate M.D. on 03/03/2025 at 7:57
== END ==
PROVIDERS: PCP Registered Nurse; Referring Provider Registered Nurse; Visit Provider Registered Nurse
DX: G45.9 Transient cerebral ischemic attack, unspecified (principal); I65.23 Occlusion and stenosis of bilateral carotid arteries
CPT/HCPCS: 93880

== ENCOUNTER → 2025-02-26 10:37 | Outpatient (CLI) | payer MEDICARE, OTHER, SELFPAY ==
[2025-02-07 15:11] VITALS: BMI 27.2
--- NOTE | 2025-02-26 10:40 | DI.MRI.S_ITS ---
PROCEDURE: MR ANKLE LT WO CON INDICATIONS: eval for swelling of heel/achilles, Achilles tendon pain TECHNIQUE: Noncontrast sagittal T1 spin echo and T2 fast spin echo with fat saturation, axial proton density fast spin echo and T2 fast spin echo with fat saturation, coronal T1 spin echo and T2 fast spin echo with fat saturation through the ankle/hindfoot. COMPARISON: None. FINDINGS: Image quality: Excellent. Osseous structures: No fracture. Osteochondral defect of the medial talar dome with full-thickness articular cartilage loss, flattening of the subchondral bone plate, and small subchondral cystic change. Small tibiotalar joint effusion. Partial- thickness articular cartilage loss of the dorsal talonavicular joint. Full-thickness articular cartilage loss of the 2nd through 5th tarsometatarsal joints with small peripheral osteophytosis and capsular thickening/scarring. Ligaments: Intact syndesmotic ligaments. Intact anterior and posterior talofibular ligaments. Intact calcaneofibular ligament. Intact deltoid ligament. Scarring of the dorsal Lisfranc ligament with intact interosseous and plantar bands. Intact bifurcate and intraosseous ligaments. Muscles / Tendons: Intact anterior extensor tendons. Intact medial flexor tendons. Moderate tendinosis of the retro malleolar peroneus longus with flattening of the peroneus brevis. No discrete peroneus brevis split tear. Low-lying peroneus brevis muscle. Moderate tendinosis of the Achilles tendon with low-grade insertional undersurface tearing at the inferior aspect of the dorsal calcaneal tuberosity. Moderate diffuse atrophy of the intrinsic foot musculature. Plantar fascia: Mild thickening of the central band of plantar fascia without adjacent acute edema to suggest acute on chronic plantar fasciitis. Miscellaneous: Preserved fat in sinus tarsi. Moderate volume fluid in the retrocalcaneal bursa. Edema along the superficial and deep aspects of the Achilles tendon and in Kager's fat pad. Dorsal forefoot subcutaneous fat edema. Neurovascular: Unremarkable. IMPRESSION: 1. Moderate tendinosis of the Achilles tendon with peritenonitis, and retrocalcaneal bursitis. 2. Low-grade insertional tearing of the Achilles tendon at the distal dorsal tuberosity. 3. Full-thickness articular cartilage defect of the medial talar dome with subchondral bone plate flattening. 4. 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 5. Moderate tendinosis of peroneus longus Dictated by: Champ Forde M.D. on 02/28/2025 at 10:05 Approved by: Champ Forde M.D. on 02/28/2025 at 10:38
== END ==
PROVIDERS: PCP Registered Nurse; Referring Provider Orthopaedic Surgery; Visit Provider Orthopaedic Surgery
DX: S86.012A Strain of left Achilles tendon, initial encounter (principal); M76.62 Achilles tendinitis, left leg; M19.072 Primary osteoarthritis, left ankle and foot; M79.672 Pain in left foot; M70.872 Other soft tissue disorders related to use, overuse and pressure, left ankle and foot
CPT/HCPCS: 73721